=== PATIENT | male | born 2000 | race Caucasian/White ===

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

== ENCOUNTER 2022-06-18 12:37 | Emergency (ER) | payer OTHER, SELFPAY ==
[2022-06-18 12:38] VITALS: BP 148/84; PULSE 93; RESP 16; TEMP 36.3; O2SAT 98; BMI 26.4
--- NOTE | 2022-06-18 14:40 | RAD_ITS ---
HISTORY: Injury/Pain. TECHNIQUE: XR Shoulder Min 2 Views. COMPARISON: None. FINDINGS: BONES : No acute fracture identified. Mineralization unremarkable. JOINTS: No dislocation. Mild widening of the chronic ventricular joint. SOFT TISSUES: Right lung apex clear. RAD/Shoulder min 2 Views IMPRESSION: Mild acromioclavicular separation. No acute fracture or dislocation identified in the right shoulder. Electronically Signed: Dali France MD at 15:06 EST ,
--- NOTE | 2022-06-18 14:40 | RAD_ITS ---
HISTORY: Injury/Pain. TECHNIQUE: XR Knee Complete 4 Views or More. COMPARISON: None. FINDINGS: BONES : No acute fracture identified. Mineralization unremarkable. JOINTS: No dislocation. Joint spaces maintained. RAD/Knee 4 or More Views IMPRESSION: No acute fracture or dislocation identified in the right knee. Electronically Signed: Dali France MD at 15:05 EST ,
--- NOTE | 2022-06-18 14:40 | RAD_ITS ---
HISTORY: Injury/Pain. TECHNIQUE: XR Elbow Min 3 Views. COMPARISON: None. FINDINGS: BONES : No acute fracture identified. Mineralization unremarkable. JOINTS: No dislocation. Joint spaces maintained. RAD/Elbow min 3 Views IMPRESSION: No acute fracture or dislocation identified in the right elbow. Electronically Signed: Dali France MD at 15:04 EST ,
--- NOTE | 2022-06-18 14:40 | RAD_ITS ---
HISTORY: Injury/Pain. TECHNIQUE: XR Spine Cervical 4 or 5 Views. COMPARISON: None. FINDINGS: VERTEBRAE: Vertebral body heights maintained with limited evaluation below the C6/7 level due to overlapping soft tissues. No acute fracture identified. ALIGNMENT: No significant anterior or posterior subluxation. Straightening of the cervical lordosis. INTERVERTEBRAL DISCS: Disc heights preserved. SOFT TISSUES: No significant prevertebral soft tissue swelling. RAD/Cerv Spine 2 or 3 Views IMPRESSION: No acute fracture or dislocation identified in the cervical spine. Electronically Signed: Dali France MD at 15:04 EST ,
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
[2022-06-18] MEDS: Ibuprofen 400 MG Tablet 800 MG PO (14:57)
[2022-06-18 15:20] VITALS: BP 108/76; PULSE 81; RESP 16; O2SAT 98
== END 2022-06-18 15:26 | disposition home or self-care (01) ==
PROVIDERS: Emergency Provider Emergency Medicine; PCP Family Medicine; Visit Provider Emergency Medicine
DX: S16.1XXA Strain of muscle, fascia and tendon at neck level, initial encounter (principal); Y99.0 Civilian activity done for income or pay; S50.01XA Contusion of right elbow, initial encounter; F17.210 Nicotine dependence, cigarettes, uncomplicated; S80.01XA Contusion of right knee, initial encounter; S46.911A Strain of unspecified muscle, fascia and tendon at shoulder and upper arm level, right arm, initial encounter; V89.0XXA Person injured in unspecified motor-vehicle accident, nontraffic, initial encounter; Y93.89 Activity, other specified; Y92.89 Other specified places as the place of occurrence of the external cause
CPT/HCPCS: 72040; 73030; 73080; 73564; 99282

== ENCOUNTER → 2023-01-25 | Outpatient (CLI) | payer OTHER, SELFPAY ==
--- NOTE | 2023-01-25 14:25 | RAD_ITS ---
STUDY: X-RAY - RIGHT FOOT CLINICAL: Male, 22 years old. Right foot injury TECHNIQUE: 3 view(s) of the foot. COMPARISON: None. FINDINGS: Normal talus, calcaneus, and tarsal bones. Normal visualized subtalar, talonavicular, calcaneocuboid, tarsal and tarsometatarsal articulations. Normal metatarsi. Normal metatarsophalangeal joint of the great toe. Normal tibial and fibular sesamoid bones. Normal interphalangeal joint of the great toe. Normal phalanges of the great toe. Normal second through fifth metatarsophalangeal joints. Normal interphalangeal joints and phalanges of the lesser toes. The soft tissue structures are unremarkable. RAD/Foot min 3 Views IMPRESSION: Normal x-ray examination of the foot. Electronically Signed: Kirk Schultz MD at 14:39 EDT ,
== END | disposition home or self-care (01) ==
LOC: MTRAD 14:21
PROVIDERS: PCP Family Medicine; Visit Provider Physician Assistant Surgical
DX: S90.31XA Contusion of right foot, initial encounter (principal)
CPT/HCPCS: 73630

== ENCOUNTER 2023-06-14 11:12 | Emergency (ER) | payer SELFPAY ==
[2023-06-14 11:13] VITALS: BP 142/87; PULSE 59; RESP 16; TEMP 36.2; O2SAT 100; BMI 28.4
[2023-06-14 12:00] LABS: Bacteria 0 SEEN /hpf (None Seen); Mucous, Urine 0 SEEN /hpf (<or=2+); Squamous Epithelial Cells - UA 0 SEEN /hpf (0-5); White Blood Cells 0 SEEN /hpf (0-5)
[2023-06-14 12:06] LABS: Color, Urine Straw (Yellow); Glucose, Dipstick Normal (Normal); Ketone-Dipstick 5 mg/dl (Negative); Leukocyte Esterase-Dipstick Negative /ul (Negative); Nitrite-Dipstick Negative (Negative); Occult Blood-Urine 250 /ul (Negative); Protein-Dipstick 15 mg/dl (Negative); Urine Bilirubin Dipstick Negative (Negative); Urine Clarity Clear (Clear); Urine Urobilinogen 1 mg/dl (Normal); Urine pH 6.5 (5.0 - 8.0)
[2023-06-14 12:23] LABS: Red Blood Cells-Urine 5-10 SEEN /hpf (0-5)
--- NOTE | 2023-06-14 12:26 | CT_ITS ---
INDICATION: flank pain, hematuria EXAMINATION: CT ABDOMEN AND PELVIS WITHOUT CONTRAST - CT Abdomen And Pelvis W/O Contrast Injection TECHNIQUE: Helically acquired images were obtained of the abdomen and pelvis without oral or IV contrast. A radiation dose optimization technique was used for this scan. IV Contrast dosage and agent: None. Oral contrast: None. RADIATION DOSAGE (If Supplied By Facility): CTDIvol = ( 8.48 ) mGy, DLP = ( 413.23 ) mGycm COMPARISON: No relevant prior comparison study available FINDINGS: LOWER CHEST: Lung bases are clear. No cardiomegaly or pericardial effusion. LIVER: The liver is normal in size, shape, and attenuation. No focal mass. GALLBLADDER AND BILIARY TREE: The gallbladder is normally distended. No gallstones. No gallbladder wall thickening or edema. No intra- or extrahepatic biliary ductal dilation. PANCREAS: No focal cystic or solid mass. SPLEEN: Normal size without focal cystic or solid mass. ADRENAL GLANDS: No nodules. KIDNEYS AND URETERS: Normal renal size and position. No hydronephrosis or nephrolithiasis. PERITONEUM: No ascites or free air. No other fluid collection. BOWEL: The stomach is unremarkable. Normal caliber small bowel. No obstruction. No colonic wall thickening or inflammatory changes. No evidence of acute appendicitis. LYMPH NODES: No enlarged mesenteric or retroperitoneal lymph nodes. VESSELS: Aorta is non-dilated. There is a coarse calcification measuring approximately 7 x 3 mm along the inferior aspect of the left renal vein of unclear significance. URINARY BLADDER: Unremarkable. REPRODUCTIVE ORGANS: No pelvic masses. ABDOMINAL WALL: No discrete abdominal or pelvic wall hernia. BONES: No acute or suspicious osseous abnormality. CT/Abdomen/Pelvis without Cont IMPRESSION: * No urinary calculi or hydronephrosis. * Nonspecific coarse calcification along, or within the inferior aspect of left renal vein of unclear significance. Recommend renal Doppler for further evaluation. * Otherwise, negative CT abdomen and pelvis without oral or IV contrast. Electronically Signed: Madhu Parnell MD at 12:55 EST ,
--- NOTE | 2023-06-14 12:33 | EDS_ITS ---
HPI History of Present Illness Chief Complaint: Complaint Informant: patient Narrative Narrative: Patient is a 23-year-old male with prior history of hematuria (evaluated by [facility] urology with CT, lab work and cystoscopy about a year ago) as well as scoliosis presenting with recurrent hematuria and back pain. Patient states he first had an episode of hematuria about a year ago. He correlated it with trauma associated with his [id number] [place] [employer] running into his genitalia. He ultimately had blood work done by his primary care doctor however and then was referred to urology through [facility]. He had a CT scan which she states was normal and also had a cystoscopy with urology in [place]. Again he was told it was normal. He notes that he is continue to have intermittent episodes of hematuria since then. Yesterday he was having blood in his urine again and now having increasing low back pain. He had an episode of vomiting yesterday. He states it oscillates on sides but is now worse on the left. He notes that his urine was completely dark brown this morning when he urinated the first time and again the second time he urinated. It since cleared up. Denies any fever or chills. Continues to have nausea. I because of the worsening symptoms came in for further evaluation. No other complaints or concerns at this time. Denies any dysuria, pain or abdominal pain. Points to his lower back as his area of back pain. Chart review on [facility] -shows that patient had a CT urogram on 10/13/2022 which showed no renal calculi, obstructive changes or evidence of renal or collecting system neoplasia. He had cytology and cultures that were negative per Dr. Lopez, urology. [facility] Home Medications NK 01/31/23 [History Last Taken Unknown] Allergy/AdvReac Type Severity Reaction Status Date / Time No Known Allergies Allergy Verified 06/14/23 11:15 Family History Father Hypertension Other COPD (chronic obstructive pulmonary disease) Cancer Diabetes Heart disease Scoliosis Surgical History History of tonsillectomy Social History Smoking Status: Former smoker Electronic Cigarette Use: with nicotine alcohol intake: never ROS ROS ED Constitutional Constitutional ED: Denies chills or fever(s) Eyes Eyes: Denies change in vision Cardiovascular Cardiovascular: Denies chest pain Respiratory/Chest Respiratory/Chest: Denies cough Gastrointestinal Gastrointestinal: Reports nausea and vomiting; Denies abdominal pain, constipation or diarrhea Genitourinary Genitourinary ED: Reports hematuria; Denies dysuria Musculoskeletal Musculoskeletal: Reports back pain; Denies arthralgias or myalgias Integumentary Denies rash Neurologic Neurologic: Denies headache(s) EXAM Physical Exam Const Vital Signs: 06/14/23 11:13 06/14/23 13:12 06/14/23 14:57 Temperature 97.1 F L Temperature Source Temporal Pulse Rate 59 L 65 Respiratory Rate 16 Blood Pressure 142/87 H 142/70 H 166/98 H Blood Pressure Mean 105 94 120 Pulse Ox 100 Oxygen Delivery Method Room Air Positive well nourished and well developed General Appearance ED: well developed and NAD HEENT Reports moist mucous membranes Eyes PERRL Neck supple Chest Wall inspection of chest normal and palpation of chest normal Resp normal respiratory effort and clear to auscultation bilaterally Cardio regular rate, regular rhythm and no murmurs GI normal to inspection, nondistended, normoactive bowel sounds and non-tender Back/Spine no CVA tenderness Back/Spine Narrative: Patient points to the lower lumbar paraspinal region as his area of pain however not significantly reproducible with direct palpation. No midline tenderness. Thoracic Spine / Upper Back: Negative for thoracic spinal tenderness or paraspinal muscle tenderness Lumbar Spine / Lower Back: lumbar spinal tenderness Neuro oriented x3 Sensorium / Orientation: alert Motor Exam: Negative for general weakness Psych mental status grossly normal Skin no rashes or lesions noted and no wounds MDM MDM MDM Narrative Medical decision making narrative: Patient evaluated for low back pain and hematuria. Differential includes renal colic, muscle skeletal pain, urinary tract infection as well as nephrotic syndrome. Vital signs significant for mildly elevated blood pressure. Does not have a known history of high blood pressure. States that his nausea and his pain is improving so we will defer any treatment at this time. Workup large unremarkable with normal CBC specifically normal hemoglobin and platelets and normal CMP. I did add on CK in case this is actually more of a rhabdo picture however the CK is normal. Kidney function is normal. Urinalysis does show hematuria but no signs of infection. CT of the flank is obtained which shows no urinary calculus or hydronephrosis however does show nonspecific coarse calcification along or within the inferior aspect of the left renal vein of unclear significance. This is discussed with vascular surgery who states that they feel that they can comfortably follow-up with him outpatient. No further imaging or recommendations ordered at this time. Patient encouraged to follow-up outpatient with his primary care doctor for blood pressure check. He states he thinks blood pressure is becoming elevated because of nervousness about being in the ER and developing a headache. Is given dose of Toradol given he does have normal kidney function normal platelets in the emergency room. We discharged home with outpatient follow-up. Given return precautions. Patient verbalized agreement understand this plan. Discharged home in stable condition. Lab Data Attestation: I reviewed the patient's lab results. Labs: Laboratory Results - last 24 hr 06/14/23 06/14/23 06/14/23 11:56 12:20 13:38 WBC 7.5 RBC 4.76 Hgb 14.0 Hct 42.7 MCV 89.7 MCH 29.4 MCHC 32.8 RDW Std Deviation 41.1 RDW Coeff of [place] 12.5 Plt Count 298 MPV 9.6 Immature Gran % (Auto) 0.400 Neut % (Auto) 58.1 Lymph % (Auto) 22.9 [place] % (Auto) 13.4 H Eos % (Auto) 4.7 Baso % (Auto) 0.5 Absolute Neuts (auto) 4.4 Absolute Lymphs (auto) 1.72 Nucleated RBC % 0 Sodium 140 Potassium 4.3 Chloride 108 H Carbon Dioxide 28.0 Anion Gap 4 L BUN 14 Creatinine 0.95 Estim Creat Clear Calc 136.49 Est GFR (MDRD) Af Amer 127 Est GFR (MDRD) Non-Af 105 BUN/Creatinine Ratio 14.8 Glucose 99 Calcium 9.9 Total Bilirubin 0.20 AST 20 ALT 25 Alkaline Phosphatase 59 Total Creatine Kinase 141 Total Protein 7.8 Albumin 3.9 Globulin 3.9 Albumin/Globulin Ratio 1.0 Urine Color Straw Urine Clarity Clear Urine pH 6.5 Ur Specific [place] 1.010 Urine Protein 15 H Urine Glucose (UA) Normal Urine Ketones 5 H Urine Occult Blood 250 H Urine Nitrite Negative Urine Bilirubin Negative Urine Urobilinogen 1 H Ur Leukocyte Esterase Negative Urine RBC 5-10 SEEN Urine WBC 0 SEEN Ur Squamous Epith Cells 0 SEEN Urine Bacteria 0 SEEN Urine Mucus 0 SEEN Radiography Diagnostic Testing: Clinical Impression(s) from Imaging Studies Abdomen/Pelvis CT 06/14/23 12:26 IMPRESSION: * No urinary calculi or hydronephrosis. * Nonspecific coarse calcification along, or within the inferior aspect of left renal vein of unclear significance. Recommend renal Doppler for further evaluation. * Otherwise, negative CT abdomen and pelvis without oral or IV contrast. Electronically Signed: Madhu Parnell MD at 12:55 EST Reading Location ID and State: [id number] [facility] Tel , Service support , Management Discussion w/another healthcare provider: [facility] Discharge Plan Triage Chief Complaint: Complaint ED Provider: Kari Mata Dx/Rx/DC Orders Clinical Impression: Hematuria of unknown cause, Abnormal CT of the abdomen, Blood pressure elevated without history of HTN Instructions: ED Hematuria Prescriptions: No Action NK Primary Care Provider: Ernesto Palomo Referrals: Parminder Waite MD [Med Staff - Active Staff] - As soon as possible Ernesto Palomo MD [Primary Care Provider] - Activity Restrictions/Additional Instructions: Your workup shows some nonspecific calcifications of the left renal vein. Is not clear if this is those with your hematuria but will have you follow-up with vascular surgery for this. Your urine did show signs of microscopic blood but no other signs of infection. Your lab work was otherwise normal including your potassium today. Please follow-up with your primary care doctor for blood pressure check as well. Return if you have a progression or worsening your symptoms. Your kidney function, platelets and red blood cells all look normal today. Disposition Disposition: Home, Self Care Discharge Date/Time: 06/14/23 15:03 Capacity Legal Head Resident Reflex Medical hold order details:: IF a medical hold is selected below, a suggested order for a MEDICAL HOLD will reflex upon signing the document. Next of kin: [place] law dictates a PRIORITY LIST for identifying legal decision-maker/legal next of kin in the following order (LNOK): 1st: The patient?s legal guardian, if any 2nd: The patient's spouse (if status is questionable, consult Risk Management) 3rd: The patient?s adult child([place]) (majority, if multiple children) 4th: The patient?s parents 5th: The patient?s adult siblings (majority, if multiple children siblings)
--- OUTSIDE RECORDS SUMMARY | 2023-06-14 12:34 | XMS RPT_ITS | CCD ---
Author Name Unknown Address [address] [place] [address] Organization [facility] Care Team Providers [employer] Name Role Phone VONDA HILL Unavailable Unavailable DAIANA KHALIL Unavailable Unavailable TAMEKA CHAMBERS Unavailable Unavailable OTHER, EMERGENCY Unavailable Unavailable VONDA HILL Unavailable Unavailable VONDA HILL Unavailable Unavailable RHIANNON WEBSTER Unavailable Unavailable ALBERTO ANGULO Unavailable Unavailable ALBERTO ANGULO Unavailable Unavailable Lakia Riddle Unavailable Unavailable PROVIDER, UNKNOWN Unavailable Unavailable No, PCP Unavailable Unavailable Marika Palomo MD Primary Care Provider Marika Palomo MD Primary Care Provider Marika Palomo MD Primary Care Provider MARIKA PALOMO Primary Care Unavailable MARIKA PALOMO Referring Unavailable LEDA JIMENEZ Attending Unavailable MARIKA PALOMO Referring Unavailable MARIKA PALOMO Primary Care Unavailable MARCELLA CHRISTENSEN Referring Unavailable MARIKA PALOMO Primary Care Unavailable MARIKA PALOMO Primary Care Unavailable MARIKA PALOMO Primary Care Unavailable MARIKA PALOMO Primary Care Unavailable MARIKA PALOMO Attending Unavailable MARIKA PALOMO Primary Care Unavailable MARIKA PALOMO Primary Care Unavailable MARIKA PALOMO Referring Unavailable MARIKA PALOMO MD Primary Care Physician ALBERTO CAMARA DO Attending Unavailable JENN GAONA, MARIKA Primary Care Unavailable SAURABH GAONA, DR CEVALLOS Attending UnavailMARIKA Valerio MD Primary Care Unavailable Marika Palomo MD Primary Care Provider ISHA MARTINEZ Attending Unavailable MARIKA PALOMO Care Unavailable Allergies Allergy Classification Reported Allergen(s) Allergy Type Date of Onset Reaction(s) Facility (1 source) acetaminophen; Translations: [ACETAMINOPHEN] Drug Allergy 3 [facility] Repository (10 sources) Chlorpheniramine / Dextromethorphan / Pseudoephedrine; Translations: [CHLORPHENIRAMINE-PS EUDOEPH-DM] Drug Allergy 6 Rash [facility] Work Phone: (1 source) Cat Allergy to substance [facility] Medications Current Medications Medication Drug Class(es) Dates Sig (Normalized) Sig (Original) amoxicillin 875 mg / clavulanate 125 mg oral tablet (1 source) Penicillin-class Antibacterial Start: 05-14-2023 End: 05-21-2023 take 1 tablet by mouth every twelve hours amoxicillin-clav ulanate (Augmentin) 875-125 MG tablet Take 1 tablet by mouth in the morning and 1 tablet in the evening. Do all this for 7 days. 14 tablet 0 05/14/2023 05/21/2023 Active mupirocin 0.02 mg/mg topical ointment (1 source) RNA Synthetase Inhibitor Antibacterial Start: 12-27-2021 End: 01-01-2022 mupirocin (BACTROBAN) 2 % ointment Apply to affected area three times daily for 5 days. 30 g 0 12/27/2021 01/01/2022 Active Completed/Discontinued Medications Medication Drug Class(es) Dates Sig (Normalized) Sig (Original) amitriptyline hydrochloride 10 mg oral tablet (6 sources) Tricyclic Antidepressant Start: 07-18-2021 take 1 tablet by mouth once daily at bedtime amitriptyline (ELAVIL) 10 mg tablet Indications: Migraine without aura, intractable, without status migrainosus Take 1 tablet by mouth daily at bedtime. 30 tablet 1 07/18/2021 Active Problems Active Problems Problem Classification Problem Date Documented Da te Episodic/Chronic Allergic reactions (2 sources) Allergy status to analgesic agent status; Translations: [Allergy status to analgesic agent status] Onset: 02-19-2018 Episodic Asthma (11 sources) Unspecified asthma, uncomplicated; Translations: [Allergic asthma] Onset: 04-26-2006 07-15-2018 Chronic External Injury - Fall (2 sources) Other fall from one level to another, initial encounter; Translations: [Other fall from one level to another, initial encounter] Onset: 02-19-2018 Fluid and electrolyte disorders (2 sources) Hyperkalemia; Translations: [Hyperkalemia] Onset: 09-29-2022 Episodic Gastroduodenal ulcer (except hemorrhage) (9 sources) Peptic ulcer; Translations: [Peptic ulcer, site unspecified, unspecified as acute or chronic, without hemorrhage or perforation] Onset: 07-15-2018 07-15-2018 Chronic Genitourinary symptoms and ill-defined conditions (2 sources) Javon hematuria; Translations: [Gross hematuria] Onset: 09-26-2022 Episodic Mood disorders (9 sources) Depressive disorder; Translations: [Depression] Onset: 07-15-2018 07-15-2018 Chronic Nausea and vomiting (1 source) Vomiting; Translations: [Vomiting, unspecified] Onset: 12-26-2022 Episodic Other gastrointestinal disorders (1 source) Chronic constipation; Translations: [Other constipation] Episodic Other injuries and conditions due to external causes (2 sources) Unspecified injury of left foot, initial encounter; Translations: [Unspecified injury of left foot, initial encounter] Onset: 02-19-2018 Episodic Other skin disorders (2 sources) Eruption; Translations: [Rash and other nonspecific skin eruption] Episodic Other upper respiratory disease (9 sources) Allergic rhinitis; Translations: [Allergic rhinitis, unspecified] Onset: 05-23-2007 02-10-2009 Chronic Other upper respiratory disease (1 source) Congestion of nasal sinus; Translations: [Nasal congestion] 05-14-2023 Episodic Other upper respiratory disease (2 sources) Nasal congestion; Translations: [Nasal congestion] Onset: 05-14-2023 Episodic Sprains and strains (2 sources) Unspecified sprain of left foot, initial encounter; Translations: [Unspecified sprain of left foot, initial encounter] Onset: 02-19-2018 Episodic Substance-related disorders (2 sources) Nicotine dependence, other tobacco product, uncomplicated; Translations: [Nicotine dependence, other tobacco product, uncomplicated] Onset: 02-19-2018 Chronic Past or Other Problems Problem Classification Problem Date Documented Da te Episodic/Chronic Blindness and vision defects (9 sources) Lazy eye; Translations: [Unspecified amblyopia, left eye] Onset: 07-15-2018 07-15-2018 Episodic Headache; including migraine (9 sources) Headache; Translations: [Headache, unspecified headache type] Onset: 07-25-2013 07-15-2018 Episodic Intracranial injury (9 sources) History of concussion injury of brain; Translations: [Personal history of traumatic brain injury] Onset: 07-15-2018 07-15-2018 Episodic Other non-traumatic joint disorders (9 sources) Shoulder pain; Translations: [Pain in right shoulder] Onset: 12-30-2020 12-30-2020 Episodic Other non-traumatic joint disorders (9 sources) Pain in right knee; Translations: [Pain in joint, lower leg] Onset: 12-30-2020 12-30-2020 Episodic Other non-traumatic joint disorders (1 source) Pain in right wrist; Translations: [Right wrist pain] Onset: 01-03-2022 Episodic Residual codes; unclassified (9 sources) Harmful pattern of use of nicotine; Translations: [Tobacco use] Onset: 07-15-2018 07-15-2018 Episodic Residual codes; unclassified (4 sources) FH: Drug dependency; Translations: [Family history of other psychoactive substance abuse and dependence] Onset: 12-22-2020 12-22-2020 Episodic Residual codes; unclassified (5 sources) Family history of other psychoactive substance abuse and dependence; Translations: [Family history of psychiatric condition] Onset: 12-22-2020 12-22-2020 Episodic Results Test Name Value Interpretation Reference Range Facil it Vital Signs Date Time Vital Sign Value Performing Clinician [facility] 05-14-2023 12:21-0500 Body height 175.3 cm Isha Martinez MD Work Phone: [facility] 05-14-2023 12:21-0500 Body mass index (BMI) [Ratio] 28.06 kg/m2 Isha Martinez MD Work Phone: [facility] 05-14-2023 12:21-0500 Body temperature 98.4 [degF] Isha Martinez MD Work Phone: [facility] 05-14-2023 12:21-0500 Body weight 86.18 kg Isha Martinez MD Work Phone: [facility] 05-14-2023 12:21-0500 Diastolic blood pressure 69 mm[Hg] Isha Martinez MD Work Phone: [facility] 05-14-2023 12:21-0500 Heart rate 89 /min Isha Martinez MD Work Phone: [facility] 05-14-2023 12:21-0500 Respiratory rate 16 /min Isha Martinez MD Work Phone: [facility] 05-14-2023 12:21-0500 SaO2% (BldA) [Mass fraction] 98 % Isha Martinez MD Work Phone: [facility] 05-14-2023 12:21-0500 Systolic blood pressure 129 mm[Hg] Isha Martinez MD Work Phone: [facility] 12-26-2022 22:20-0400 Diastolic Blood Pressure Non-Invasive [address] BAN WILEY MD [facility] 12-26-2022 22:20-0400 Heart rate 58 /min DR BAN WILEY MD [facility] 12-26-2022 22:20-0400 Reason For Taking VItal Signs DR BAN WILEY MD [facility] 12-26-2022 22:20-0400 Respiratory rate 16 /min DR BAN WILEY MD [facility] 12-26-2022 22:20-0400 Systolic Blood Pressure Non-Invasive [address] BAN WILEY MD [facility] 12-26-2022 21:34-0400 Body temperature 98.06 [degF] DR BAN WILEY MD [facility] 12-26-2022 21:34-0400 Diastolic Blood Pressure Non-Invasive [address] BAN WILEY MD [facility] 12-26-2022 21:34-0400 Heart rate 71 /min DR BAN WILEY MD [facility] 12-26-2022 21:34-0400 Respiratory rate 16 /min DR BAN WILEY MD [facility] 12-26-2022 21:34-0400 Systolic Blood Pressure Non-Invasive [address] BAN WILEY MD [facility] 09-20-2022 11:38-0400 Body height 175.3 cm Marika Palomo MD Work Phone: [facility] 09-20-2022 11:38-0400 Body weight 81.65 kg Marika Palomo MD Work Phone: [facility] 09-20-2022 11:38-0400 Diastolic blood pressure 70 mm[Hg] Marika Palomo MD Work Phone: [facility] 09-20-2022 11:38-0400 Heart rate 87 /min Marika Palomo MD Work Phone: [facility] 09-20-2022 11:38-0400 SaO2% (BldA) [Mass fraction] 98 % Marika Palomo MD Work Phone: [facility] 09-20-2022 11:38-0400 Systolic blood pressure 128 mm[Hg] Marika Palomo MD Work Phone: [facility] 12-27-2021 19:07-0400 Body temperature 98.2 [degF] Kaleb Pendjune FORESTRY PROFESSOR.MATERIALS PLANNER/PRODUCTION PLANNER Work Phone: [facility] 12-27-2021 19:07-0400 Body weight 83.55 kg Kaleb Pendjune FORESTRY PROFESSOR.MATERIALS PLANNER/PRODUCTION PLANNER Work Phone: [facility] 12-27-2021 19:07-0400 Diastolic blood pressure 76 mm[Hg] Kaleb Pendlebury FORESTRY PROFESSOR.MATERIALS PLANNER/PRODUCTION PLANNER Work Phone: [facility] 12-27-2021 19:07-0400 Heart rate 95 /min Kaleb Pendletucker FORESTRY PROFESSOR.MATERIALS PLANNER/PRODUCTION PLANNER Work Phone: [facility] 12-27-2021 19:07-0400 Respiratory rate 16 /min Kaleb Pendlebury FORESTRY PROFESSOR.MATERIALS PLANNER/PRODUCTION PLANNER Work Phone: [facility] 12-27-2021 19:07-0400 SaO2% (BldA) [Mass fraction] 99 % Kaleb Pendlebury FORESTRY PROFESSOR.MATERIALS PLANNER/PRODUCTION PLANNER Work Phone: [facility] 12-27-2021 19:07-0400 Systolic blood pressure 130 mm[Hg] Kaleb Pendlebury FORESTRY PROFESSOR.MATERIALS PLANNER/PRODUCTION PLANNER Work Phone: [facility] 10-31-2021 18:02-0400 Body temperature 98.49 [degF] Kaleb Pendlebury FORESTRY PROFESSOR.MATERIALS PLANNER/PRODUCTION PLANNER Work Phone: [facility] 10-31-2021 18:02-0400 Body weight 83.28 kg Kaleb Pendlebury FORESTRY PROFESSOR.MATERIALS PLANNER/PRODUCTION PLANNER Work Phone: [facility] 10-31-2021 18:02-0400 Diastolic blood pressure 98 mm[Hg] Kaleb Pendlebury FORESTRY PROFESSOR.MATERIALS PLANNER/PRODUCTION PLANNER Work Phone: [facility] 10-31-2021 18:02-0400 Heart rate 81 /min Kaleb Pendlebury FORESTRY PROFESSOR.MATERIALS PLANNER/PRODUCTION PLANNER Work Phone: [facility] 10-31-2021 18:02-0400 Respiratory rate 20 /min Kaleb Pendlebury FORESTRY PROFESSOR.MATERIALS PLANNER/PRODUCTION PLANNER Work Phone: [facility] 10-31-2021 18:02-0400 SaO2% (BldA) [Mass fraction] 98 % Kaleb Pendletucker FORESTRY PROFESSOR.MATERIALS PLANNER/PRODUCTION PLANNER Work Phone: [facility] 10-31-2021 18:02-0400 Systolic blood pressure 142 mm[Hg] Kaleb [facility] FORESTRY PROFESSOR.MATERIALS PLANNER/PRODUCTION PLANNER Work Phone: [facility] Encounters Encounter Date Encounter Type Care Provider Facility Start: 05-14-2023 End: 05-14-2023 Emergency department patient visit ISHA MARTINEZ [facility] Start: 05-14-2023 End: 05-14-2023 Emergency department patient visit Isha Martinez MD Work Phone: [facility] Procedures Date Procedure Procedure Detail Performing Clinician Start: 05-14-2023 SARS-COV-2, FLU A/B, AND RSV COMBO Isha Martinez MD Work Phone: Start: 08-04-2021 Adult depression screening assessment Kaleb Barnhart APRN.MATERIALS PLANNER/PRODUCTION PLANNER Work Phone: Plan of Treatment Date Care Activity Detail Author Start: 2060 RSV Immunization aged 60 or older (1 - 1-dose 60+ series) RSV Immunization aged 60 or older (1 - 1-dose 60+ series) [facility] Start: 2050 Zoster Vaccines (1 of 2) Zoster Vaccines (1 of 2) [facility] Start: 09-21-2023 ANNUAL PCP TEAM CHRONIC DISEASE VISIT ANNUAL PCP TEAM CHRONIC DISEASE VISIT [facility] Start: 01-26-2023 Influenza vaccination [facility] Start: 09-22-2022 End: 11-22-2022 POTASSIUM BLD POTASSIUM BLD Lab Routine Hyperkalemia Expected: 09/22/2022, Expires: 11/22/2022 [facility] Work Phone: Immunizations Immunization Date Immunization Notes Care Provider [facility] 07-24-2017 meningococcal polysaccharide (groups A, C, Y and W-135) diphtheria toxoid conjugate vaccine (MCV4P) Kaleb Barnhart APRN.[facility] Work Phone: [facility] Work Phone: 06-30-2013 human papilloma viru s vaccine, quadrivalent Kaleb Barnhart APRN.MATERIALS PLANNER/PRODUCTION PLANNER Work Phone: [facility] 08-01-2012 human papilloma viru s vaccine, quadrivalent Kaleb Barnhart APRN.MATERIALS PLANNER/PRODUCTION PLANNER Work Phone: [facility] 08-01-2012 Meningococcal, MCV4, unspecified conjugate formulation(groups A, C, Y and W-135) Kaleb Barnhart APRN.MATERIALS PLANNER/PRODUCTION PLANNER Work Phone: [facility] 08-01-2012 tetanus toxoid, redu main diphtheria toxoid, and acellular pertussis vaccine, adsorbed Kaleb Barnhart APRN.MATERIALS PLANNER/PRODUCTION PLANNER Work Phone: [facility] 04-29-2010 influenza virus vacc ine, unspecified formulation Kaleb Barnhart APRN.MATERIALS PLANNER/PRODUCTION PLANNER Work Phone: [facility] Work Phone: 03-10-2009 influenza, seasonal, injectable Kaleb Pizanotucker FORESTRY PROFESSOR.MATERIALS PLANNER/PRODUCTION PLANNER Work Phone: [facility] 02-17-2008 varicella virus vaccine Jakob soila Pizanotucker FORESTRY PROFESSOR.MATERIALS PLANNER/PRODUCTION PLANNER Work Phone: [facility] 04-09-2006 influenza virus vacc ine, unspecified formulation Kaleb Pizanotucker FORESTRY PROFESSOR.MATERIALS PLANNER/PRODUCTION PLANNER Work Phone: [facility] Work Phone: 01-15-2006 diphtheria, tetanus toxoids and acellular pertussis vaccine Kaleb Barnhart FORESTRY PROFESSOR.[facility] Work Phone: [facility] Work Phone: 01-15-2006 hepatitis A vaccine, unspecified formulation Kaleb Pizanotucker FORESTRY PROFESSOR.[facility] Work Phone: [facility] Work Phone: 01-15-2006 measles, mumps, rube lla, and varicella virus vaccine Kaleb Barnhart FORESTRY PROFESSOR.MATERIALS PLANNER/PRODUCTION PLANNER Work Phone: [facility] Work Phone: 01-15-2006 poliovirus vaccine, inactivated Kaleb Pizanotucker FORESTRY PROFESSOR.MATERIALS PLANNER/PRODUCTION PLANNER Work Phone: [facility] Work Phone: 01-15-2006 hepatitis A and hepatitis B vaccine Isha Martinez MD Work Phone: [facility] 03-15-2004 influenza, seasonal, injectable Kaleb Pizanotucker FORESTRY PROFESSOR.MATERIALS PLANNER/PRODUCTION PLANNER Work Phone: [facility] 10-28-2001 diphtheria, tetanus toxoids and acellular pertussis vaccine Kaleb Pizanotucker FORESTRY PROFESSOR.MATERIALS PLANNER/PRODUCTION PLANNER Work Phone: [facility] Work Phone: 10-28-2001 haemophilus influenz ae type b vaccine, HbOC conjugate Kaleb Pizanotucker FORESTRY PROFESSOR.MATERIALS PLANNER/PRODUCTION PLANNER Work Phone: [facility] Work Phone: 10-28-2001 trivalent poliovirus vaccine, live, oral Kaleb Barnhart FORESTRY PROFESSOR.[facility] Work Phone: [facility] Work Phone: 04-10-2001 measles, mumps and rubella virus vaccine Kaleb Barnhart FORESTRY PROFESSOR.MATERIALS PLANNER/PRODUCTION PLANNER Work Phone: [facility] Work Phone: 04-10-2001 varicella virus vaccine Jakob soila Barnhart FORESTRY PROFESSOR.MATERIALS PLANNER/PRODUCTION PLANNER Work Phone: [facility] Work Phone: 01-04-2001 hepatitis B vaccine, pediatric or pediatric/adolescent dosage Kaleb Barnhart FORESTRY PROFESSOR.[facility] Work Phone: [facility] Work Phone: 2000 diphtheria, tetanus toxoids and acellular pertussis vaccine Kalebsoila [facility] FORESTRY PROFESSOR.[facility] Work Phone: [facility] Work Phone: 2000 haemophilus influenz ae type b vaccine, HbOC conjugate Kalebsoila [facility] FORESTRY PROFESSOR.[facility] Work Phone: [facility] Work Phone: 2000 pneumococcal conjuga te vaccine, 7 valent Kaleb [facility] FORESTRY PROFESSOR.[facility] Work Phone: [facility] Work Phone: 2000 diphtheria, tetanus toxoids and acellular pertussis vaccine Kalebsoila [facility] FORESTRY PROFESSOR.MATERIALS PLANNER/PRODUCTION PLANNER Work Phone: [facility] Work Phone: 2000 haemophilus influenz ae type b vaccine, HbOC conjugate [facility] FORESTRY PROFESSOR.[facility] Work Phone: [facility] Work Phone: 2000 pneumococcal conjuga te vaccine, 7 valent Kaleb [facility] FORESTRY PROFESSOR.MATERIALS PLANNER/PRODUCTION PLANNER Work Phone: [facility] Work Phone: 2000 trivalent poliovirus vaccine, live, oral Kaleb Barnhart FORESTRY PROFESSOR.MATERIALS PLANNER/PRODUCTION PLANNER Work Phone: [facility] Work Phone: 2000 diphtheria, tetanus toxoids and acellular pertussis vaccine Kaleb Barnhart FORESTRY PROFESSOR.MATERIALS PLANNER/PRODUCTION PLANNER Work Phone: [facility] Work Phone: 2000 haemophilus influenz ae type b vaccine, HbOC conjugate Kaleb Barnhart FORESTRY PROFESSOR.[facility] Work Phone: [facility] Work Phone: 2000 hepatitis B vaccine, pediatric or pediatric/adolescent dosage Kaleb Barnhart FORESTRY PROFESSOR.[facility] Work Phone: [facility] Work Phone: 2000 pneumococcal conjuga te vaccine, 7 valent Kaleb Barnhart FORESTRY PROFESSOR.[facility] Work Phone: [facility] Work Phone: 2000 trivalent poliovirus vaccine, live, oral Kaleb Barnhart FORESTRY PROFESSOR.MATERIALS PLANNER/PRODUCTION PLANNER Work Phone: [facility] Work Phone: 2000 hepatitis B vaccine, pediatric or pediatric/adolescent dosage Kaleb Barnhart FORESTRY PROFESSOR.[facility] Work Phone: [facility] Work Phone: Payers Date Payer Category Payer Self-pay 2021 Unknown 2020 Medicaid [employer] [employer] [id number] 2020-Present [phone] [address] [place] [address] Medicaid [id number] 2020 Medicaid [id number] 2020 Medicaid [id number] 2000 Unknown [id number] 2000 Unknown [id number] Unknown [id number] Social History Date Type Detail Facility Start: 01-03-2022 Tobacco smoking stat [facility] Never smoked tobacco [facility] Work Phone: Start: 10-31-2021 End: 05-14-2023 Alcohol intake Current drinker of alcohol (finding) [facility] Start: 11-18-2020 History SDOH Alcohol Frequency 2 [facility] Start: 11-18-2020 History SDOH Alcohol Std Drinks 1 [facility] Start: 02-01-2021 History SDOH Alcohol Comment rarely [facility] Start: 11-18-2020 History SDOH Social Connections Phone 5 [facility] Start: 11-18-2020 History SDOH Social Connections Get Together 3 [facility] Start: 11-18-2020 History SDOH Social Connections Living 98 [facility] Start: 11-18-2020 History SDOH Physica l Activity DPW 7 [facility] Start: 11-18-2020 History SDOH Physica l Activity MPS 15 [facility] Start: 11-18-2020 History SDOH Stress 4 [facility] Start: 11-18-2020 Education 14 [facility] Start: 02-12-2018 End: 01-03-2022 Tobacco Comment Vapes [facility] Start: 2000 Sex Assigned At Not on file [facility] Start: 12-17-2021 End: 12-27-2021 Exposure to SARS-CoV-2 (event) Not sure [facility] History of tobacco use Passive smoker [facility] Start: 01-03-2022 Tobacco use and exposure Forme r smokeless tobacco user [facility] Tobacco Tobacco Use: vape. [facility] Tobacco smoking status No Smokin g Status Entered [facility] Sex Assigned At Male [facility] Start: 05-14-2023 [facility] History of tobacco use Current smoker [facility] History of tobacco use Cigarette Smoker [facility] Start: 05-16-2022 History of Social function [facility] Start: 05-16-2022 Tobacco use panel [facility] Start: 05-14-2023 Alcohol Comment occasional [facility] Functional Status Date Assessment Result Facility 12-26-2022 Functional Status ID band on, Call device within reach, Bed in low position, Wheels locked, Bedside Cart Locked, Safety level maintained [facility] Mental Status Date Assessment Result Facility 12-26-2022 Mental Status Oriented x 4 [facility] Clinical Notes 02-10-2009 to 05-14-2023 Isha Martinez MD - 05/14/2023 12:07 PM Poornima Martinez MD - 05/14/2023 12:07 PM ESTTelephone Encounter - Vangie Al RATE ENGINEER - 10/05/2022 12:49 PM EDTPatient Instructions Note Date & Type Note Facility 05-14-2023 Emergency department Note EMERGENCY DEPARTMENT ENCOUNTER Pt Name: Hammad Lion Birthdate 2000 Date of evaluation: 05/14/2023 ED Provider: Isha Martinez MD CHIEF COMPLAINT Chief Complaint Patient presents with URI Pt believes he has a sinus infection. Sunday morning he woke up with N/V/D that resolved and now he has cough, runny nose, and sinus pressure. States that his dad was sick and they both took COVID tests that both came back negative. HISTORY OF PRESENT ILLNESS (Location/Symptom, Timing/Onset, Context/Setting, Quality, Duration, Modifying Factors, Severity) Note limiting factors. I wore appropriate PPE for the entirety of this encounter. HPI Hammad Lion is a 23 y.o. who presents to the emergency department with sinus congestion, he says his father was just recently sick as well, he has some achiness in his back and headache, no measured fevers, he had 1 day of vomiting and diarrhea but that has since subsided, symptoms started 5 days ago Nursing Notes were reviewed. Limitations to history: None Outside historians: None REVIEW OF SYSTEMS Review of Systems Pertinent positives and negatives as per HPI PAST MEDICAL HISTORY Past Medical History: Diagnosis Date Asthma Headache SURGICAL HISTORY Past Surgical History: Procedure Laterality Date TONSILLECTOMY (HISTORICAL) CURRENT MEDICATIONS Previous Medications No medications on file ALLERGIES Patient has no known allergies. FAMILY HISTORY No family history on file. SOCIAL HISTORY Social History Socioeconomic History Marital status: Single Tobacco Use Smoking status: Former Types: Cigarettes Vaping Use Vaping Use: Every day Substances: Nicotine Substance and Sexual Activity Alcohol use: Yes Comment: occasional Drug use: No SCREENINGS PHYSICAL EXAM ED Triage Vitals [05/14/23 1221] Temp Heart Rate Resp BP 36.9 C (98.4 F) 89 16 129/69 SpO2 Temp Source Heart Rate Source Patient Position 98 % Oral -- -- BP Location FiO2 (%) -- -- Physical Exam Mild tenderness to palpation in the bilateral maxillary sinuses, heart regular rate and rhythm, no anterior cervical lymphadenopathy DIAGNOSTIC RESULTS RADIOLOGY (Per Emergency Physician): Interpretation per the Radiologist below, if available at the time of this note: No orders to display LABS: Labs Reviewed SARS-COV-2, FLU A/B, AND RSV COMBO - Normal Result Value SARS-CoV-2 Not Detected Respiratory Syncytial Virus Not Detected Influenza A Not Detected Influenza B Not Detected Narrative: Methodology: real-time, RT-PCR The SARS-CoV-2, Flu A/B, and RSV Combo assay is intended for in vitro diagnostic use under the FDA Emergency Use Authorization (EUA). This test has not been FDA cleared or approved. In compliance with this authorization, please visit www.fda.gov/media/143284/downloa d or www.fda.gov/media/585577/downloa d to access the applicable information sheets. All other labs were within normal range or not returned as of this dictation. EMERGENCY DEPARTMENT COURSE and DIFFERENTIAL DIAGNOSIS/MDM: Vitals: Vitals: 05/14/23 1221 BP: 129/69 Pulse: 89 Resp: 16 Temp: 36.9 C (98.4 F) TempSrc: Oral SpO2: 98% Weight: 86.2 kg (190 lb) Height: 1.753 m (5' 9 ) Medications - No data to display MDM elements: The patient presented with chief complaint of with nasal congestion/sinus congestion, backache and headache for the past 5 days after his father had a similar illness, he took a home COVID test that was negative, he comes in for a work note today. The differential diagnosis associated with this patient's presentation includes COVID, influenza, RSV, sinus congestion/infection. Our workup consisted of ordering/reviewing: COVID influenza RSV is negative will treat with augmentin. The patient will be Discharged. Patient is in agreement with this plan. PROCEDURES: Unless otherwise noted below, none Procedures CRITICAL CARE TIME None FINAL IMPRESSION 1. Sinus congestion DISPOSITION Discharge 05/14/2023 01:31:46 PM PATIENT REFERRED TO: Marika Palomo MD [address] [address] As needed DISCHARGE MEDICATIONS: New Prescriptions AMOXICILLIN-CLAVULANATE (AUGMENTIN) 875-125 MG TABLET Take 1 tablet by mouth in the morning and 1 tablet in the evening. Do all this for 7 days. (Comment: Please note this report has been produced using speech recognition software and may contain errors related to that system including errors in grammar, punctuation, and spelling, as well as words and phrases that may be inappropriate. If there are any questions or concerns please feel free to contact the dictating provider for clarification.) Isha Martinez MD (electronically signed) Emergency Medicine Provider Isha Martinez MD 05/14/23 1332 documented in this encounter [facility] 05-14-2023 Physician Emergency department Note EMERGENCY DEPARTMENT ENCOUNTER Pt Name: Hammad Lion Birthdate 2000 Date of evaluation: 05/14/2023 ED Provider: Isha Martinez MD CHIEF COMPLAINT Chief Complaint Patient presents with URI Pt believes he has a sinus infection. Sunday morning he woke up with N/V/D that resolved and now he has cough, runny nose, and sinus pressure. States that his dad was sick and they both took COVID tests that both came back negative. HISTORY OF PRESENT ILLNESS (Location/Symptom, Timing/Onset, Context/Setting, Quality, Duration, Modifying Factors, Severity) Note limiting factors. I wore appropriate PPE for the entirety of this encounter. HPI Hammad Lion is a 23 y.o. who presents to the emergency department with sinus congestion, he says his father was just recently sick as well, he has some achiness in his back and headache, no measured fevers, he had 1 day of vomiting and diarrhea but that has since subsided, symptoms started 5 days ago Nursing Notes were reviewed. Limitations to history: None Outside historians: None REVIEW OF SYSTEMS Review of Systems Pertinent positives and negatives as per HPI PAST MEDICAL HISTORY Past Medical History: Diagnosis Date Asthma Headache SURGICAL HISTORY Past Surgical History: Procedure Laterality Date TONSILLECTOMY (HISTORICAL) CURRENT MEDICATIONS Previous Medications No medications on file ALLERGIES Patient has no known allergies. FAMILY HISTORY No family history on file. SOCIAL HISTORY Social History Socioeconomic History Marital status: Single Tobacco Use Smoking status: Former Types: Cigarettes Vaping Use Vaping Use: Every day Substances: Nicotine Substance and Sexual Activity Alcohol use: Yes Comment: occasional Drug use: No SCREENINGS PHYSICAL EXAM ED Triage Vitals [05/14/23 1221] Temp Heart Rate Resp BP 36.9 C (98.4 F) 89 16 129/69 SpO2 Temp Source Heart Rate Source Patient Position 98 % Oral -- -- BP Location FiO2 (%) -- -- Physical Exam Mild tenderness to palpation in the bilateral maxillary sinuses, heart regular rate and rhythm, no anterior cervical lymphadenopathy DIAGNOSTIC RESULTS RADIOLOGY (Per Emergency Physician): Interpretation per the Radiologist below, if available at the time of this note: No orders to display LABS: Labs Reviewed SARS-COV-2, FLU A/B, AND RSV COMBO - Normal Result Value SARS-CoV-2 Not Detected Respiratory Syncytial Virus Not Detected Influenza A Not Detected Influenza B Not Detected Narrative: Methodology: real-time, RT-PCR The SARS-CoV-2, Flu A/B, and RSV Combo assay is intended for in vitro diagnostic use under the FDA Emergency Use Authorization (EUA). This test has not been FDA cleared or approved. In compliance with this authorization, please visit www.fda.gov/media/605545/downloa d or www.fda.gov/media/783106/downloa d to access the applicable information sheets. All other labs were within normal range or not returned as of this dictation. EMERGENCY DEPARTMENT COURSE and DIFFERENTIAL DIAGNOSIS/MDM: Vitals: Vitals: 05/14/23 1221 BP: 129/69 Pulse: 89 Resp: 16 Temp: 36.9 C (98.4 F) TempSrc: Oral SpO2: 98% Weight: 86.2 kg (190 lb) Height: 1.753 m (5' 9 ) Medications - No data to display MDM elements: The patient presented with chief complaint of with nasal congestion/sinus congestion, backache and headache for the past 5 days after his father had a similar illness, he took a home COVID test that was negative, he comes in for a work note today. The differential diagnosis associated with this patient's presentation includes COVID, influenza, RSV, sinus congestion/infection. Our workup consisted of ordering/reviewing: COVID influenza RSV is negative will treat with augmentin. The patient will be Discharged. Patient is in agreement with this plan. PROCEDURES: Unless otherwise noted below, none Procedures CRITICAL CARE TIME None FINAL IMPRESSION 1. Sinus congestion DISPOSITION Discharge 05/14/2023 01:31:46 PM PATIENT REFERRED TO: Marika Palomo MD [address] [address] As needed DISCHARGE MEDICATIONS: New Prescriptions AMOXICILLIN-CLAVULANATE (AUGMENTIN) 875-125 MG TABLET Take 1 tablet by mouth in the morning and 1 tablet in the evening. Do all this for 7 days. (Comment: Please note this report has been produced using speech recognition software and may contain errors related to that system including errors in grammar, punctuation, and spelling, as well as words and phrases that may be inappropriate. If there are any questions or concerns please feel free to contact the dictating provider for clarification.) Isha Martinez MD (electronically signed) Emergency Medicine Provider Isha Martinez MD 05/14/23 1332 [facility] 12-26-2022 Hospital Discharg e instructions Patient Education 12/26/2022 21:44:54 Vomiting (Adult) Vomiting (Adult) Vomiting is a common symptom that may be due to different causes. These include gastroenteritis ( stomach flu ), food poisoning and gastritis. There are other more serious causes of vomiting which may be hard to diagnose early in the illness. Therefore, it is important to watch for the warning signs listed below. The main danger from repeated vomiting is dehydration. This is due to excess loss of water and minerals from the body. When this occurs, your body fluids must be replaced. Home care If symptoms are severe, rest at home for the next 24 hours. Because your symptoms may be from an infection, wash your hands often and well. If soap and water are not available, use alcohol-based master merchandiser to keep from spreading the infection to others. Wash your hands for at least 20 seconds. Humming the happy birthday song twice while you wash is an easy way to make sure you've washed for 20 seconds. Wash your hands after using the toilet, before and after preparing food, before eating food, after changing a diaper, cleaning a wound, caring for a sick person, and blowing your nose, coughing, or sneezing. You should also wash your hands after caring for someone who is sick, touching pet food, or treats, and touching an animal, or animal waste. You may use acetaminophen or NSAID medicines like ibuprofen or naproxen to control fever, unless another medicine was prescribed. If you have chronic liver or kidney disease or ever had a stomach ulcer or gastrointestinal bleeding, talk with your doctor before using these medicines. Aspirin should never be used in anyone under 18 years of age who is ill with a fever. It may cause severe liver damage. Don't use NSAID medicines if you are already taking one for another condition (like arthritis) or are on aspirin (such as for heart disease, or after a stroke) Don't use tobacco and or drink alcohol, which may worsen your symptoms. If medicines for vomiting were prescribed, take as directed. Once vomiting stops, then follow these guidelines: During the first 12 to 24 hours follow the diet below: Fruit juices. Apple, grape juice, clear fruit drinks, and electrolyte replacement drinks. Beverages. Soft drinks without caffeine; mineral water (plain or flavored), decaffeinated tea and coffee. Soups. Clear broth and bouillon Desserts. Plain gelatin, ice pops, and fruit juice bars. As you feel better, you may add 6 to 8 ounces of yogurt per day. During the next 24 hours you may add the following to the above: Hot cereal, plain toast, bread, rolls, crackers Plain noodles, rice, mashed potatoes, chicken noodle or rice soup Unsweetened canned fruit such as applesauce, bananas (avoid pineapple and citrus) Limit caffeine and chocolate. No spices or seasonings except salt. During the next 24 hours: Gradually resume a normal diet, as you feel better and your symptoms lessen. Follow-up care Follow up with your healthcare provider, or as advised. When to seek medical advice Call your healthcare provider right away if any of these occur: Constant right-sided lower belly pain or increasing general belly pain Continued vomiting (unable to keep liquids down) for 24 hours Vomiting blood or coffee grounds Swollen belly Frequent diarrhea (more than 5 times a day); blood (red or black color) or mucus in diarrhea Reduced urine output or extreme thirst Weakness, dizziness or fainting Unusually drowsy or confused Fever of 100.4 F (38 C) oral or higher, or as directed Yellow color of the eyes or skin [id number] [employer]. [address] [place] [address], [place] [address]. All rights reserved. This information is not intended as a substitute for professional medical care. Always follow your healthcare professional's instructions. Follow Up Care 12/26/2022 21:27:55 With:MARIKA PALOMO Address: [address] [address] [phone] Business (1) When:2-4 days Comments:Drink plenty fluids, use ondansetron as needed for nausea. Slowly advance your diet. Follow-up closely with your doctor, return if any worsening or concerning symptoms. [facility] 12-26-2022 Emergency department Discharge summary Discharge Instructions Thank you for allowing [facility] to assist you with your healthcare needs. The following is important discharge information regarding your hospital visit. Diagnosis from Today's Visit Generalized body aches Vomiting Vomiting What to Do Next Instructions from Your Care Team No qualifying data available. Post Acute Orders No qualifying data available. You Need to Schedule the Following Appointments Follow Up with MARIKA PALOMO When Within 2-4 days Why: Drink plenty fluids, use ondansetron as needed for nausea. Slowly advance your diet. Follow-up closely with your doctor, return if any worsening or concerning symptoms. Where: [address] [address] [phone] Business (1) Allergies Cats Medications Please ask your primary doctor or pharmacist before taking any other medication not listed, including over the counter drugs, herbal medications, vitamins and or supplements as they may interact with your home medications. What How Much When Instructions Last Dose New ondansetron (ondansetron 4 mg oral tablet, disintegrating) 1 tab(s) by mouth Three (3) times a day Duration: 3 Days Printed Prescription Please take this list to your next doctor s visit. Bring all medications you take, including over the counter medications, herbals and other supplements with you to your doctor s visit. Patients and families are reminded to discard old lists and to update any records with all medication providers or retail pharmacies. Education Materials Vomiting (Adult) Vomiting is a common symptom that may be due to different causes. These include gastroenteritis ( stomach flu ), food poisoning and gastritis. There are other more serious causes of vomiting which may be hard to diagnose early in the illness. Therefore, it is important to watch for the warning signs listed below. The main danger from repeated vomiting is dehydration. This is due to excess loss of water and minerals from the body. When this occurs, your body fluids must be replaced. Home care If symptoms are severe, rest at home for the next 24 hours. Because your symptoms may be from an infection, wash your hands often and well. If soap and water are not available, use alcohol-based master merchandiser to keep from spreading the infection to others. Wash your hands for at least 20 seconds. Humming the happy birthday song twice while you wash is an easy way to make sure you've washed for 20 seconds. Wash your hands after using the toilet, before and after preparing food, before eating food, after changing a diaper, cleaning a wound, caring for a sick person, and blowing your nose, coughing, or sneezing. You should also wash your hands after caring for someone who is sick, touching pet food, or treats, and touching an animal, or animal waste. You may use acetaminophen or NSAID medicines like ibuprofen or naproxen to control fever, unless another medicine was prescribed. If you have chronic liver or kidney disease or ever had a stomach ulcer or gastrointestinal bleeding, talk with your doctor before using these medicines. Aspirin should never be used in anyone under 18 years of age who is ill with a fever. It may cause severe liver damage. Don't use NSAID medicines if you are already taking one for another condition (like arthritis) or are on aspirin (such as for heart disease, or after a stroke) Don't use tobacco and or drink alcohol, which may worsen your symptoms. If medicines for vomiting were prescribed, take as directed. Once vomiting stops, then follow these guidelines: During the first 12 to 24 hours follow the diet below: Fruit juices. Apple, grape juice, clear fruit drinks, and electrolyte replacement drinks. Beverages. Soft drinks without caffeine; mineral water (plain or flavored), decaffeinated tea and coffee. Soups. Clear broth and bouillon Desserts. Plain gelatin, ice pops, and fruit juice bars. As you feel better, you may add 6 to 8 ounces of yogurt per day. During the next 24 hours you may add the following to the above: Hot cereal, plain toast, bread, rolls, crackers Plain noodles, rice, mashed potatoes, chicken noodle or rice soup Unsweetened canned fruit such as applesauce, bananas (avoid pineapple and citrus) Limit caffeine and chocolate. No spices or seasonings except salt. During the next 24 hours: Gradually resume a normal diet, as you feel better and your symptoms lessen. Follow-up care Follow up with your healthcare provider, or as advised. When to seek medical advice Call your healthcare provider right away if any of these occur: Constant right-sided lower belly pain or increasing general belly pain Continued vomiting (unable to keep liquids down) for 24 hours Vomiting blood or coffee grounds Swollen belly Frequent diarrhea (more than 5 times a day); blood (red or black color) or mucus in diarrhea Reduced urine output or extreme thirst Weakness, dizziness or fainting Unusually drowsy or confused Fever of 100.4 F (38 C) oral or higher, or as directed Yellow color of the eyes or skin [employer]. [address] [place] [address]. All rights reserved. This information is not intended as a substitute for professional medical care. Always follow your healthcare professional's instructions. Additional Information VACCINATE! IT SAVES LIVES! Members of the community who have not yet received the COVID-19 vaccine and would like to receive it can visit one of [facility] vaccine clinics. There are many vaccine clinic locations within the [facility]. For locations and available times, please visit [email or web address] It is important to note that some COVID mobile vaccine clinics are held outdoors and may be canceled in rainy or stormy conditions. To learn more about pediatric vaccinations (ages 5-11), we invite you to visit the [facility] webpage. [email or web address].[facility].org/p ages/3634-Gwfek-Ibmujybaiqw-Freq vlprgo-Qowmz-Cfshjvjqj.html To learn more about the COVID-19 vaccine, we invite you to visit the CDC website for a list of frequently asked questions. https://www.cdc.gov/coronavirus/ 2019-ncov/vaccines/faq.html [facility] Patient Portal Access Instructions: Stay connected with your healthcare team and access your personal medical information anytime with the [facility] Patient Portal. If you would like a full copy of your medical records please contact the [facility] Medical Records Department Sunday through Sunday between 8a.m. and 4:30p.m. Please follow the directions below to access the portal: 1.Access the email account you provided upon registration to the [facility].2.Look for an invitation email from [facility].3.Open the email and access the invitation link: Accept Invitation to [facility]4.Fill in the required shepard to create your account. Sign into www.[employer] with your username and password that you created in the above steps to stay up to date. You can then view a summary of results, a summary of your visits, and the ability to download your summaries to your computer or send the information securely to a physician. Remember that your healthcare information is confidential, so carefully consider who you will allow to register on the [facility] Patient Portal for access to your information. You can also access the [facility] Patient Portal on the [employer] sea. Simply click on Health Records under Health Data and then click on the [facility] logo. HOW TO SAFELY DISPOSE OF PRESCRIPTION MEDICATIONS Please use one of the following methods to safely dispose of your unused medications. 1.Use a drug disposal kit: the drug disposal pouch allows you to safely discard your old and unused drugs. Ask your nurse to give you one when you are discharged.2.Visit a local take-back location: Many local pharmacies and police departments have programs that collect old and unwanted prescription drugs. Call your local pharmacy or go to http://[facility]/3F5Pa4e to find one close to you.3.Make use of household items: Use cat litter or old coffee grounds to dispose medications if other options are not available. Mix your drugs with these household products, seal them in an airtight container and throw it into the garbage. Call [facility]: [phone] to be sure your drugs can be disposed of in this way. Some medicines may require a different approach.4.Never flush your medications down the toilet. IF YOU HAVE BEEN PRESCRIBED AN OPIOIDS FOR PAIN If you have been prescribed an opioid (such as hydrocodone, oxycodone or morphine), it is critical to understand the possible side effects and risks of opioid pain medications. Even when taken as directed, opioids can have several side effects including: Tolerance, meaning you might need to take more of a medication for the same pain relief. Nausea, vomiting and/or constipation. Sleepiness, dizziness, dry mouth, confusion, depression or itching. Physical dependence, meaning you have withdrawal symptoms when a medication is stopped ? this can develop within a few days. KNOW YOUR RESPONSIBILITIES It is important to know exactly how much and how often to take the opioid pain medications you are prescribed. Never take opioids in higher amounts or more often than prescribed. Do not combine opioids with alcohol or other drugs that cause drowsiness, such as benzodiazepines, also known as benzos, including diazepam and alprazolam, muscle relaxants or sleep aids. Never sell or share prescription opioids. This is illegal. Store opioids in a secure place and out of reach of others (including children, family, friends and visitors). The last page(s) of this document has been signed and retained as a CHART COPY Signatures Patient Education Materials Vomiting (Adult) Medication Leaflets My discharge plan and instructions have been reviewed and explained to me and I,HAMMAD LION understand my current condition and have read and understand these discharge instructions. I have received a written copy of the plan/instructions. If I have questions, I am aware that I should contact my doctor. Patient/Sales Support Consultant Signature: Date/Time: Relationship to Patient: Witness Name/Signature: Date/Time: [facility] 10-05-2022 Miscellaneous Notes Called patient. Voicemail box that is not set up yet. Channelkithart message sent. Vangie Al LPN documented in this encounter [facility] 09-27-2022 Miscellaneous Notes Pt confirmed cysto with Dr. Liu in [place] [facility] 10/20/22 @ 8:30am. His CT 10/13/22. Ref by Norm Jimenez for gross hematuria. Lily documented in this encounter [facility] 09-27-2022 Miscellaneous Notes Pt called and is notified of providers message and instructions. Pt voices understanding. Belkys Gandhi RN Attempted to call pt back, no answer & message said his voicemail box has not been set up yet. Sophy Vargas LPN There is nothing in urology note regarding that one. I would check with them on that. Patient was advised that he should go to jury duty so he is not late. He can let them know the situation and they can call or he can call back if needed. PCP is already in the first room for the morning. Patient reports he is having blood in urine for 3 weeks now. Saw urologist yesterday. Was instructed not to hold his urine. Reports he is due in Jury duty today at 8:45 am at [employer]. Asking if pcp would write note for him to be excused from jury duty d/t health. Patient is waiting in the parking lot. Please phone him on cell. documented in this encounter [facility] 09-22-2022 Miscellaneous Notes Patient informed and verbalized understanding. Briseida Murphy His labs and urine are all ok. Except his potassium is borderline high. Is likely due to lab error. Recheck potassium in one week documented in this encounter [facility] 09-20-2022 Note HNO ID: [id number] Author: Marika Palomo MD Service: ? Author Type: Physician Type: Progress Notes Filed: 09/20/2022 12:08 PM Note Text: Patient presents with: Hematuria HPI: Patient presents today for office visit for intermittent gross hematuria X 3 wks. Seen in [facility] 09/06/22. UA and ultrasound of the testicles both normal. I do not have any notes from the er. No frequency or urgency with urination Some burning with urination but not always No discharge from penis Some mid back pain. Hx of Scoliosis. Nothing new . No flank pain. No fever No chills No new nausea. Hx of reflux. No vomiting. Has had some pain in his testicles for years. No hx of stones. Has had unprotected intercourse with three woman over the last six months. Has constipation since he was a child. Can go two to five days between bm No blood in the stool or black stools. MEDICATIONS: Current Outpatient Medications Medication Sig predniSONE (DELTASONE) 10 mg tablet Take 4 tabs daily for 3 days, then 2 tabs daily for 3 days, then 1 tab daily for 3 days with food. (Patient not taking: Reported on 01/03/2022) rizatriptan (MAXALT-BOLT LABELER) 10 mg disintegrating tablet Take 1 tablet by mouth as needed. May repeat in 2 hours if needed (Patient not taking: Reported on 12/27/2021 ) sertraline (ZOLOFT) 50 mg tablet 1/2 tab daily x 4 weeks and increase to 50mg daily (Patient not taking: Reported on 12/27/2021 ) amitriptyline (ELAVIL) 10 mg tablet Take 1 tablet by mouth daily at bedtime. (Patient not taking: Reported on 12/27/2021 ) ondansetron orally disintegrating (ZOFRAN ODT) 4 mg disintegrating tablet Take 1 tablet by mouth every 6 hours as needed for nausea/vomiting. (Patient not taking: Reported on 12/27/2021 ) No current facility-administered medications for this visit. ALLERGIES: ALLERGIES Allergen Reactions [facility] [Chlorphe* Rash PAST MEDICAL HISTORY Diagnosis Date Acute maxillary sinusitis 06/[address] Allergic rhinitis, cause unspecified testing positive for dust and dust mites only Depression 07/15/2018 Esophageal reflux 01/2005 per [place] [facility]ER[facility] scan: 19 episodes reflux in 1 hour Headache, unspecified headache type 07/25/2013 History of concussion 07/15/2018 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 Rainer Armstrong PAST SURGICAL HISTORY Procedure Laterality Date ADENOIDECTOMY PRIMARY Adenoidectomy TONSILLECTOMY PRIMARY/SECONDARY Tonsillectomy FAMILY HISTORY Problem Relation Age of Onset Psychiatry Mother depression GI Mother PUD other (lung) Father spots on lung: pending biopsy Social History Tobacco Use Smoking status: Never Passive exposure: Yes Smokeless tobacco: Former Tobacco comments: Vapes Vaping Use Vaping Use: current everyday user Substances: Nicotine, Flavoring Devices: Pre-filled or refillable cartridge Substance Use Topics Alcohol use: Yes Comment: rarely Drug use: Not Currently Reviewed current medications, allergies, past medical history, surgical history, family history and social history today. REVIEW OF SYSTEMS All other reviewed and negative other than HPI. VITALS: BP 128/70 Pulse 87 Ht 175.3 cm (5' 9 ) Wt 81.6 kg (180 lb) SpO2 98% BMI 26.58 kg/m? Last 4 Encounter Wt Readings: Date: Wt: 01/03/2022 82.6 kg (182 lb) 12/27/2021 83.6 kg (184 lb 3.2 oz) 10/31/2021 83.3 kg (183 lb 9.6 oz) 08/08/2021 80.3 kg (177 lb) PHYSICAL EXAMINATION: General appearance: Well appearing, alert, in no acute distress, well-hydrated, well nourished. Skin: Skin color, texture, turgor normal, no suspicious rashes or lesions Head: Normocephalic, no masses, lesions, tenderness or abnormalities Eyes: Anicteric sclera. Pupils are equally round and reactive to light. Extraocular movements are intact. Back: Normal exam, no cva tenderness Lungs: Lungs clear to auscultation. No wheezing, rhonchi, rales Heart: RRR without murmur, gallop, or rubs. No ectopy Abdomen: Normal abdominal exam, Abdomen soft, non-tender. Bowel sounds normal. No masses, organomegaly Testicular exam is benign. ASSESSMENT/PLAN: 1. Gross hematuria - ICD9: 599.71, ICD10: R31.0 (primary diagnosis) - is basically painless. Unknown etiology. Get records from [facility]. Check labs and see urologyl - URINALYSIS, WITH MICROSCOPIC - URINE CULTURE - GC/CHLAMYDIA AMPLIF, URINE - CBC + DIFF - COMP METABOLIC PANEL - CONSULT TO UROLOGY 2. Chronic constipation - ICD9: 564.00, ICD10: K59.09 - add miralax daily. Call If any issues. Marika Palomo MD [facility] 09-20-2022 Instructions Marika Palomo MD - 09/20/2022 12:05 PM EDT Miralax use over the counter. documented in this encounter [facility] 09-20-2022 History of Presen t illness Narrative Patient presents with: Hematuria HPI: Patient presents today for office visit for intermittent gross hematuria X 3 wks. Seen in [place] [facility] 09/06/22. UA and ultrasound of the testicles both normal. I do not have any notes from the er. No frequency or urgency with urination Some burning with urination but not always No discharge from penis Some mid back pain. Hx of Scoliosis. Nothing new . No flank pain. No fever No chills No new nausea. Hx of reflux. No vomiting. Has had some pain in his testicles for years. No hx of stones. Has had unprotected intercourse with three woman over the last six months. Has constipation since he was a child. Can go two to five days between bm No blood in the stool or black stools. MEDICATIONS: Current Outpatient Medications Medication Sig predniSONE (DELTASONE) 10 mg tablet Take 4 tabs daily for 3 days, then 2 tabs daily for 3 days, then 1 tab daily for 3 days with food. (Patient not taking: Reported on 01/03/2022) rizatriptan (MAXALT-BOLT LABELER) 10 mg disintegrating tablet Take 1 tablet by mouth as needed. May repeat in 2 hours if needed (Patient not taking: Reported on 12/27/2021 ) sertraline (ZOLOFT) 50 mg tablet 1/2 tab daily x 4 weeks and increase to 50mg daily (Patient not taking: Reported on 12/27/2021 ) amitriptyline (ELAVIL) 10 mg tablet Take 1 tablet by mouth daily at bedtime. (Patient not taking: Reported on 12/27/2021 ) ondansetron orally disintegrating (ZOFRAN ODT) 4 mg disintegrating tablet Take 1 tablet by mouth every 6 hours as needed for nausea/vomiting. (Patient not taking: Reported on 12/27/2021 ) No current facility-administered medications for this visit. ALLERGIES: ALLERGIES Allergen Reactions [facility] [Chlorphe* Rash PAST MEDICAL HISTORY Diagnosis Date Acute maxillary sinusitis 06/[address] Allergic rhinitis, cause unspecified testing positive for dust and dust mites only Depression 07/15/2018 Esophageal reflux 01/2005 [place]: 19 episodes reflux in 1 hour Headache, unspecified headache type 07/25/2013 History of concussion 07/15/2018 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 Rainer Armstrong PAST SURGICAL HISTORY Procedure Laterality Date ADENOIDECTOMY PRIMARY <AGE 12 age 4 Adenoidectomy TONSILLECTOMY PRIMARY/SECONDARY <AGE 12 age 4 Tonsillectomy FAMILY HISTORY Problem Relation Age of Onset Psychiatry Mother depression GI Mother PUD other (lung) Father spots on lung: pending biopsy Social History Tobacco Use Smoking status: Never Passive exposure: Yes Smokeless tobacco: Former Tobacco comments: Vapes Vaping Use Vaping Use: current everyday user Substances: Nicotine, Flavoring Devices: Pre-filled or refillable cartridge Substance Use Topics Alcohol use: Yes Comment: rarely Drug use: Not Currently Reviewed current medications, allergies, past medical history, surgical history, family history and social history today. REVIEW OF SYSTEMS All other reviewed and negative other than HPI. VITALS: BP 128/70 Pulse 87 Ht 175.3 cm (5' 9 ) Wt 81.6 kg (180 lb) SpO2 98% BMI 26.58 kg/m Last 4 Encounter Wt Readings: Date: Wt: 01/03/2022 82.6 kg (182 lb) 12/27/2021 83.6 kg (184 lb 3.2 oz) 10/31/2021 83.3 kg (183 lb 9.6 oz) 08/08/2021 80.3 kg (177 lb) PHYSICAL EXAMINATION: General appearance: Well appearing, alert, in no acute distress, well-hydrated, well nourished. Skin: Skin color, texture, turgor normal, no suspicious rashes or lesions Head: Normocephalic, no masses, lesions, tenderness or abnormalities Eyes: Anicteric sclera. Pupils are equally round and reactive to light. Extraocular movements are intact. Back: Normal exam, no cva tenderness Lungs: Lungs clear to auscultation. No wheezing, rhonchi, rales Heart: RRR without murmur, gallop, or rubs. No ectopy Abdomen: Normal abdominal exam, Abdomen soft, non-tender. Bowel sounds normal. No masses, organomegaly Testicular exam is benign. ASSESSMENT/PLAN: 1. Gross hematuria - ICD9: 599.71, ICD10: R31.0 (primary diagnosis) - is basically painless. Unknown etiology. Get records from [facility]. Check labs and see urologyl - URINALYSIS, WITH MICROSCOPIC - URINE CULTURE - GC/CHLAMYDIA AMPLIF, URINE - CBC + DIFF - COMP METABOLIC PANEL - CONSULT TO UROLOGY 2. Chronic constipation - ICD9: 564.00, ICD10: K59.09 - add miralax daily. Call If any issues. Marika Palomo MD documented in this encounter [facility] 01-03-2022 Note HNO ID: [id number] Author: RT Jadyn(R) Service: Radiology Author Type: Technologist Type: Progress Notes Filed: 01/03/2022 6:28 PM Note Text: Radiology Service Progress Note PATIENT NAME: Hammad Lion DATE OF SERVICE: January 03, 2022 TIME: 6:21 PM PATIENT IDENTITY VERIFICATION COMPLETED USING TWO (2) IDENTIFIERS: Name and Date of confirmed by patient verbally. FALL SCREENING: Has the patient had 2 falls in the last year or 1 fall with injury or currently using an Ambulatory Assistive Device (Walker, Cane, Wheelchair, Crutches, etc.)? No PATIENT GENDER DATA: Male PATIENT RELEVANT IMPLANT DATA REVIEWED: Yes RADIOLOGY DEPARTMENT: General X-ray: Exam(s) Completed: Upper Extremity X-Ray(s): Wrist, right PERIPHERAL IV DATA: Not applicable SIGNED BY: RT Jadyn(R) January 03, 2022 6:21 PM [facility] 01-03-2022 Note HNO ID: [id number] Author: Marcella Christensen APRN.MATERIALS PLANNER/PRODUCTION PLANNER Service: ? Author Type: Nurse Practitioner Type: Progress Notes Filed: 01/03/2022 6:45 PM Note Text: Subjective The history is provided by the patient. No party plan selling distributor was used. HPI Hammad Lion is a 21 year old male who presents today for CC of right right pain that started on Sunday, he was sliding into third with hand bent playing softball. He has used ice, ibuprofen, and tylenol without relief with very little relief. No previous injury. BP 128/78 Pulse 64 Temp 36.6 ?C (97.9 ?F) Resp 20 Wt 82.6 kg (182 lb) SpO2 99% BMI 26.88 kg/m? Social History Tobacco Use Smoking status: Never Passive exposure: Yes Smokeless tobacco: Former Tobacco comments: Vapes Vaping Use Vaping Use: current everyday user Substances: Nicotine, Flavoring Devices: Pre-filled or refillable cartridge Substance Use Topics Alcohol use: Yes Comment: rarely Drug use: Not Currently PAST MEDICAL HISTORY Diagnosis Date Acute maxillary sinusitis 06/[address] Allergic rhinitis, cause unspecified testing positive for dust and dust mites only Depression 07/15/2018 Esophageal [place]/2005 [place]: 19 episodes reflux in 1 hour Headache, unspecified headache type 07/25/2013 History of concussion 07/15/2018 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 Rainer Armstrong I have confirmed and edited as necessary, the [facility] Review of Systems Constitutional: Negative for chills and fever. Musculoskeletal: Positive for joint pain (right wrist). Negative for myalgias. Skin: Negative for itching and rash. All other systems reviewed and are negative. Objective Physical Exam Vitals and nursing note reviewed. Cardiovascular: Pulses: Radial pulses are 2+ on the right side and 2+ on the left side. Pulmonary: Effort: Pulmonary effort is normal. Musculoskeletal: Right wrist: Swelling (mild), tenderness, bony tenderness and snuff box tenderness present. No crepitus. Decreased range of motion (extension, supination). Normal pulse. Left wrist: Normal. Comments: Neurovascular intact Skin: General: Skin is warm and dry. Neurological: Mental Status: He is alert and oriented to person, place, and time. Sensory: Sensation is intact. Deep Tendon Reflexes: Reflexes are normal and symmetric. Psychiatric: Mood and Affect: Affect normal. ASSESSMENT/PLAN: 1. Right wrist pain - ICD9: 719.43, ICD10: M25.531 Rest, ice, elevation, antwan wrap or wrist splint as needed for comfort. Tylenol (generic acetaminophen) 500 mg-2 tabs every 8 hrs. as needed for fever and aches Ibuprofen 600 mg (3-200mg tablets) every 6 hours if pain persists beyond 10-14 days there are times where a repeat x-ray is needed to rule out occult fracture Follow up with ortho as needed - XR WRIST INJURY 4V PA/LAT/OBL/SCAPH RIGHT IMPRESSION: No Acute Fracture. RESULT: 3 views of the right wrist with a navicular view show no acute osseous, articular or soft tissue abnormality. The radiocarpal and intercarpal articulations are intact. Interpreted by : VICTORINO MARTIN MD Diagnosis and treatment plan were discussed and questions were answered to the patient's satisfaction. Pt acknowledged understanding of concepts and follow up plan. Specific signs and symptoms that would indicate the need for higher level of care were discussed in detail warranting prompt ER evaluation. Marcella Christensen APRN.MATERIALS PLANNER/PRODUCTION PLANNER [facility] 12-27-2021 Note HNO ID: [id number] Author: Kaleb Barnhart APRN.KATIE Service: ? Author Type: Nurse Practitioner Type: Progress Notes Filed: 12/27/2021 7:41 PM Note Text: Subjective HPI Nontoxic-appearing male presents urgent care [facility] [place] exposure. Patient states was exposed to [place] 2 to 3 days ago Associated symptoms slightly painful pruritic erythematous rash on lips back stomach and groin. Has used OTC medications this has not helped. Additionally patient did use bleach. Denies any significant pain. Stated it is slightly painful if he does itch the area. Denies any fevers nausea vomiting abdominal pain dysuria frequency urgency testicular pain scrotal swelling change in bowel or bladder habits. Past medical history prescription medication use allergies reviewed. .Patient presents with: Rash: (LT) eye, groin, face, upper torso PAST MEDICAL HISTORY Diagnosis Date - Acute maxillary sinusitis 06/[address] - Allergic rhinitis, cause unspecified testing positive for dust and dust mites only - Depression 07/15/2018 - Esophageal [place]/2005 [place]: 19 episodes reflux in 1 hour - Headache, unspecified headache type 07/25/2013 - History of concussion 07/15/2018 - Lazy eye of left side 07/15/2018 - Nicotine abuse 07/15/2018 - PUD (peptic ulcer disease) 07/15/2018 - Type O blood, Rh positive - Unspecified asthma(493.90) followed by Dr. Rainer Armstrong PAST SURGICAL HISTORY Procedure Laterality Date - ADENOIDECTOMY PRIMARY Adenoidectomy - TONSILLECTOMY PRIMARY/SECONDARY Tonsillectomy ALLERGIES [facility] [[id number]] MEDICATIONS rizatriptan (MAXALT-BOLT LABELER) 10 mg disintegrating tablet Take 1 tablet by mouth as needed. May repeat in 2 hours if needed sertraline (ZOLOFT) 50 mg tablet 1/2 tab daily x 4 weeks and increase to 50mg daily amitriptyline (ELAVIL) 10 mg tablet Take 1 tablet by mouth daily at bedtime. ondansetron orally disintegrating (ZOFRAN ODT) 4 mg disintegrating tablet Take 1 tablet by mouth every 6 hours as needed for nausea/vomiting. FAMILY HISTORY Problem Relation Age of Onset - Psychiatry Mother depression - GI Mother PUD - other (lung) Father spots on lung: pending biopsy Social History Tobacco Use - Smoking status: Passive Smoke Exposure - Never Smoker - Smokeless tobacco: Former User - Tobacco comment: Vapes Vaping Use - Vaping Use: current everyday user - Substances: Nicotine, Flavoring - Devices: Pre-filled or refillable cartridge Substance Use Topics - Alcohol use: Yes Comment: rarely - Drug use: Not Currently BP 130/76 Pulse 95 Temp 36.8 ?C (98.2 ?F) Resp 16 Wt 83.6 kg (184 lb 3.2 oz) SpO2 99% BMI 27.20 kg/m? Review of Systems Constitutional: Negative for chills, fever and malaise/fatigue. HENT: Negative for congestion, ear discharge, ear pain, sinus pain and sore throat. Eyes: Negative for blurred vision, pain, discharge and redness. Respiratory: Negative for cough, hemoptysis, sputum production, shortness of breath, wheezing and stridor. Cardiovascular: Negative for chest pain. Gastrointestinal: Negative for abdominal pain, diarrhea, nausea and vomiting. Musculoskeletal: Negative for myalgias. Skin: Positive for itching and rash. Neurological: Negative for dizziness and headaches. Objective Physical Exam Constitutional: General: He is not in acute distress. Appearance: He is not diaphoretic. HENT: Head: Normocephalic. Mouth/Throat: Mouth: Mucous membranes are moist. Pharynx: Oropharynx is clear. No oropharyngeal exudate or posterior oropharyngeal erythema. Eyes: Conjunctiva/sclera: Conjunctivae normal. Pupils: Pupils are equal, round, and reactive to light. Cardiovascular: Rate and Rhythm: Normal rate and regular rhythm. Heart sounds: Normal heart sounds. Pulmonary: Effort: Pulmonary effort is normal. No tachypnea, accessory muscle usage or respiratory distress. Breath sounds: Normal breath sounds. No stridor. No wheezing, rhonchi or rales. Abdominal: Palpations: Abdomen is soft. Tenderness: There is no abdominal tenderness. Musculoskeletal: Cervical back: Normal range of motion and neck supple. No rigidity or tenderness. Lymphadenopathy: Cervical: No cervical adenopathy. Skin: General: Skin is warm and dry. Comments: Maculopapular rash noted on highlighted areas. Patient does have some scabbing to face. Patient states he did use bleach on this area. No visual changes eye pain pain with EOMs flashes lights and floaters. No eye involvement. Neurological: Mental Status: He is alert and oriented to person, place, and time. ASSESSMENT/PLAN: 1. Rash - ICD9: 782.1, ICD10: R21 Patient diagnosed with rash. Placed on prednisone taper. We discussed prednisone and peptic ulcer disease. We discussed not taking with NSAIDs. Avoiding alcohol. Patient was educated on supportive therapies. Patient martín (more content not included)... [facility] 12-27-2021 History of Presen t illness Narrative Images from the original note were not included. Subjective HPI Nontoxic-appearing male presents urgent care [facility] [place] exposure. Patient states was exposed to [place] 2 to 3 days ago Associated symptoms slightly painful pruritic erythematous rash on lips back stomach and groin. Has used OTC medications this has not helped. Additionally patient did use bleach. Denies any significant pain. Stated it is slightly painful if he does itch the area. Denies any fevers nausea vomiting abdominal pain dysuria frequency urgency testicular pain scrotal swelling change in bowel or bladder habits. Past medical history prescription medication use allergies reviewed. 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 Rainer Armstrong PAST SURGICAL HISTORY Procedure Laterality Date ADENOIDECTOMY PRIMARY <AGE 12 age 4 Adenoidectomy TONSILLECTOMY PRIMARY/SECONDARY <AGE 12 age 4 Tonsillectomy ALLERGIES [facility] [[id number]-[id number]] MEDICATIONS rizatriptan (MAXALT-BOLT LABELER) 10 mg disintegrating tablet Take 1 tablet by mouth as needed. May repeat in 2 hours if needed sertraline (ZOLOFT) 50 mg tablet 1/2 tab daily x 4 weeks and increase to 50mg daily amitriptyline (ELAVIL) 10 mg tablet Take 1 tablet by mouth daily at bedtime. ondansetron orally disintegrating (ZOFRAN ODT) 4 mg disintegrating tablet Take 1 tablet by mouth every 6 hours as needed for nausea/vomiting. FAMILY HISTORY Problem Relation Age of Onset Psychiatry Mother depression GI Mother PUD other (lung) Father spots on lung: pending biopsy Social History Tobacco Use Smoking status: Passive Smoke Exposure - Never Smoker Smokeless tobacco: Former User Tobacco comment: Vapes Vaping Use Vaping Use: current everyday user Substances: Nicotine, Flavoring Devices: Pre-filled or refillable cartridge Substance Use Topics Alcohol use: Yes Comment: rarely Drug use: Not Currently BP 130/76 Pulse 95 Temp 36.8 C (98.2 F) Resp 16 Wt 83.6 kg (184 lb 3.2 oz) SpO2 99% BMI 27.20 kg/m Review of Systems Constitutional: Negative for chills, fever and malaise/fatigue. HENT: Negative for congestion, ear discharge, ear pain, sinus pain and sore throat. Eyes: Negative for blurred vision, pain, discharge and redness. Respiratory: Negative for cough, hemoptysis, sputum production, shortness of breath, wheezing and stridor. Cardiovascular: Negative for chest pain. Gastrointestinal: Negative for abdominal pain, diarrhea, nausea and vomiting. Musculoskeletal: Negative for myalgias. Skin: Positive for itching and rash. Neurological: Negative for dizziness and headaches. Objective Physical Exam Constitutional: General: He is not in acute distress. Appearance: He is not diaphoretic. HENT: Head: Normocephalic. Mouth/Throat: Mouth: Mucous membranes are moist. Pharynx: Oropharynx is clear. No oropharyngeal exudate or posterior oropharyngeal erythema. Eyes: Conjunctiva/sclera: Conjunctivae normal. Pupils: Pupils are equal, round, and reactive to light. Cardiovascular: Rate and Rhythm: Normal rate and regular rhythm. Heart sounds: Normal heart sounds. Pulmonary: Effort: Pulmonary effort is normal. No tachypnea, accessory muscle usage or respiratory distress. Breath sounds: Normal breath sounds. No stridor. No wheezing, rhonchi or rales. Abdominal: Palpations: Abdomen is soft. Tenderness: There is no abdominal tenderness. Musculoskeletal: Cervical back: Normal range of motion and neck supple. No rigidity or tenderness. Lymphadenopathy: Cervical: No cervical adenopathy. Skin: General: Skin is warm and dry. Comments: Maculopapular rash noted on highlighted areas. Patient does have some scabbing to face. Patient states he did use bleach on this area. No visual changes eye pain pain with EOMs flashes lights and floaters. No eye involvement. Neurological: Mental Status: He is alert and oriented to person, place, and time. ASSESSMENT/PLAN: 1. Rash - ICD9: 782.1, ICD10: R21 Patient diagnosed with rash. Placed on prednisone taper. We discussed prednisone and peptic ulcer disease. We discussed not taking with NSAIDs. Avoiding alcohol. Patient was educated on supportive therapies. Patient will follow up with primary care provider as needed. Patient was instructed to immediately proceed to emergency room for any new, worsening, or symptoms lasting longer than anticipated. The patient's clinical presentation is otherwise unremarkable at this time. Based on exam and clinical finding, the patient is stable for discharge. Plan of care was discussed with patient. Patient verbalizes understanding and agrees to plan of care. This note was generated using [employer] software. It may contain errors in wording, punctuation, or spelling. Kaleb Barnhart APRN.KATIE documented in this encounter [facility] 11-01-2021 Miscellaneous Notes Spoke with pt and information listed below given. Pt verbalizes understanding. Jasmin Shaw LPN Please notify that lab testing negative for herpes/shingles. Continue with f/u as discussed during visit. documented in this encounter [facility] 10-31-2021 Note HNO ID: [id number] Author: Kaleb Barnhart APRN.KATIE Service: ? Author Type: Nurse Practitioner Type: Progress Notes Filed: 10/31/2021 6:31 PM Note Text: Subjective HPI Nontoxic-appearing male presents urgent care chief plaint rash. Duration of symptoms 2 days. Associated symptoms slightly painful pruritic erythematous rash on lips and groin. Patient states he is concerned this may be herpes. 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 Has not used any OTC medications. Denies any significant pain. Stated it is slightly painful if he does itch the area. Denies history of herpes. Denies any fevers nausea vomiting abdominal pain dysuria frequency urgency testicular pain scrotal swelling change in bowel or bladder habits. Past medical history prescription medication use allergies reviewed. .Patient presents with: Rash: mouth and groin x2 days PAST MEDICAL HISTORY Diagnosis Date - Acute maxillary sinusitis 06/[address] - Allergic rhinitis, cause unspecified testing positive for dust and dust mites only - Depression 07/15/2018 - Esophageal reflux 01/2005 per [place] [facility] scan: 19 episodes reflux in 1 hour - Headache, unspecified headache type 07/25/2013 - History of concussion 07/15/2018 - Lazy eye of left side 07/15/2018 - Nicotine abuse 07/15/2018 - PUD (peptic ulcer disease) 07/15/2018 - Type O blood, Rh positive - Unspecified asthma(493.90) followed by Dr. Rainer Armstrong PAST SURGICAL HISTORY Procedure Laterality Date - ADENOIDECTOMY PRIMARY Adenoidectomy - TONSILLECTOMY PRIMARY/SECONDARY Tonsillectomy ALLERGIES [facility] [[id number]] MEDICATIONS rizatriptan (MAXALT-BOLT LABELER) 10 mg disintegrating tablet Take 1 tablet by mouth as needed. May repeat in 2 hours if needed sertraline (ZOLOFT) 50 mg tablet 1/2 tab daily x 4 weeks and increase to 50mg daily amitriptyline (ELAVIL) 10 mg tablet Take 1 tablet by mouth daily at bedtime. ondansetron orally disintegrating (ZOFRAN ODT) 4 mg disintegrating tablet Take 1 tablet by mouth every 6 hours as needed for nausea/vomiting. FAMILY HISTORY Problem Relation Age of Onset - Psychiatry Mother depression - GI Mother PUD - other (lung) Father spots on lung: pending biopsy Social History Tobacco Use - Smoking status: Passive Smoke Exposure - Never Smoker - Smokeless tobacco: Former User - Tobacco comment: Vapes Vaping Use - Vaping Use: current everyday user - Substances: Nicotine, Flavoring - Devices: Pre-filled or refillable cartridge Substance Use Topics - Alcohol use: Yes Comment: rarely - Drug use: Not Currently BP 142/98 Pulse 81 Temp 36.9 ?C (98.5 ?F) Resp 20 Wt 83.3 kg (183 lb 9.6 oz) SpO2 98% BMI 27.11 kg/m? Review of Systems Constitutional: Negative for chills, fever and malaise/fatigue. HENT: Negative for congestion, ear discharge, ear pain, sinus pain and sore throat. Eyes: Negative for blurred vision, pain, discharge and redness. Respiratory: Negative for cough, hemoptysis, sputum production, shortness of breath, wheezing and stridor. Cardiovascular: Negative for chest pain. Gastrointestinal: Negative for abdominal pain, diarrhea, nausea and vomiting. Genitourinary: Negative. Musculoskeletal: Negative for myalgias. Skin: Positive for itching and rash. Neurological: Negative for dizziness and headaches. Objective Physical Exam Constitutional: General: He is not in acute distress. Appearance: He is not diaphoretic. HENT: Head: Normocephalic. Mouth/Throat: Mouth: Mucous membranes are moist. Pharynx: Oropharynx is clear. No oropharyngeal exudate or posterior oropharyngeal erythema. Eyes: Conjunctiva/sclera: Conjunctivae normal. Pupils: Pupils are equal, round, and reactive to light. Cardiovascular: Rate and Rhythm: Normal rate and regular rhythm. Heart sounds: Normal heart sounds. Pulmonary: Effort: Pulmonary effort is normal. No tachypnea, accessory muscle usage or respiratory distress. Breath sounds: Normal breath sounds. No stridor. Abdominal: Palpations: Abdomen is soft. Tenderness: There is no abdominal tenderness. There is no right CVA tenderness, left CVA tenderness, guarding or rebound. Genitourinary: Pubic Area: Rash present. Penis: Circumcised. Testes: Right: Tenderness or swelling not present. Left: Tenderness or swelling not present. Epididymis: Right: No tenderness. Left: No tenderness. Comments: Rash noted shaft of penis. Rash was erythematous base macular papular lesions. No vesicles noted. No remote redness. Musculoskeletal: Cervical back: Normal range of motion and neck supple. No rigidity or tenderness. Lymphadenopathy: Cervical: No cervical adenopathy. Skin: General: Skin is warm and dry. Neurological: Mental Status: He is alert and oriented to person, place, and time. ASSESSMENT/PLAN: 1. Rash - ICD9: 782.1, ICD10: R21 (more content not included)... [facility] 10-31-2021 History of Presen t illness Narrative Subjective HPI Nontoxic-appearing male presents urgent care chief plaint rash. Duration of symptoms 2 days. Associated symptoms slightly painful pruritic erythematous rash on lips and groin. Patient states he is concerned this may be herpes. 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 Has not used any OTC medications. Denies any significant pain. Stated it is slightly painful if he does itch the area. Denies history of herpes. Denies any fevers nausea vomiting abdominal pain dysuria frequency urgency testicular pain scrotal swelling change in bowel or bladder habits. Past medical history prescription medication use allergies reviewed. .Patient presents with: Rash: mouth and groin x2 days PAST MEDICAL HISTORY Diagnosis Date Acute maxillary sinusitis 06/[address] Allergic rhinitis, cause unspecified testing positive for dust and dust mites only Depression 07/15/2018 Esophageal reflux 01/2005 per [place]: 19 episodes reflux in 1 hour Headache, unspecified headache type 07/25/2013 History of concussion 07/15/2018 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 Rainer Armstrong PAST SURGICAL HISTORY Procedure Laterality Date ADENOIDECTOMY PRIMARY <AGE 12 age 4 Adenoidectomy TONSILLECTOMY PRIMARY/SECONDARY <AGE 12 age 4 Tonsillectomy ALLERGIES [facility] [[id number]] MEDICATIONS rizatriptan (MAXALT-BOLT LABELER) 10 mg disintegrating tablet Take 1 tablet by mouth as needed. May repeat in 2 hours if needed sertraline (ZOLOFT) 50 mg tablet 1/2 tab daily x 4 weeks and increase to 50mg daily amitriptyline (ELAVIL) 10 mg tablet Take 1 tablet by mouth daily at bedtime. ondansetron orally disintegrating (ZOFRAN ODT) 4 mg disintegrating tablet Take 1 tablet by mouth every 6 hours as needed for nausea/vomiting. FAMILY HISTORY Problem Relation Age of Onset Psychiatry Mother depression GI Mother PUD other (lung) Father spots on lung: pending biopsy Social History Tobacco Use Smoking status: Passive Smoke Exposure - Never Smoker Smokeless tobacco: Former User Tobacco comment: Vapes Vaping Use Vaping Use: current everyday user Substances: Nicotine, Flavoring Devices: Pre-filled or refillable cartridge Substance Use Topics Alcohol use: Yes Comment: rarely Drug use: Not Currently BP 142/98 Pulse 81 Temp 36.9 C (98.5 F) Resp 20 Wt 83.3 kg (183 lb 9.6 oz) SpO2 98% BMI 27.11 kg/m Review of Systems Constitutional: Negative for chills, fever and malaise/fatigue. HENT: Negative for congestion, ear discharge, ear pain, sinus pain and sore throat. Eyes: Negative for blurred vision, pain, discharge and redness. Respiratory: Negative for cough, hemoptysis, sputum production, shortness of breath, wheezing and stridor. Cardiovascular: Negative for chest pain. Gastrointestinal: Negative for abdominal pain, diarrhea, nausea and vomiting. Genitourinary: Negative. Musculoskeletal: Negative for myalgias. Skin: Positive for itching and rash. Neurological: Negative for dizziness and headaches. Objective Physical Exam Constitutional: General: He is not in acute distress. Appearance: He is not diaphoretic. HENT: Head: Normocephalic. Mouth/Throat: Mouth: Mucous membranes are moist. Pharynx: Oropharynx is clear. No oropharyngeal exudate or posterior oropharyngeal erythema. Eyes: Conjunctiva/sclera: Conjunctivae normal. Pupils: Pupils are equal, round, and reactive to light. Cardiovascular: Rate and Rhythm: Normal rate and regular rhythm. Heart sounds: Normal heart sounds. Pulmonary: Effort: Pulmonary effort is normal. No tachypnea, accessory muscle usage or respiratory distress. Breath sounds: Normal breath sounds. No stridor. Abdominal: Palpations: Abdomen is soft. Tenderness: There is no abdominal tenderness. There is no right CVA tenderness, left CVA tenderness, guarding or rebound. Genitourinary: Pubic Area: Rash present. Penis: Circumcised. Testes: Right: Tenderness or swelling not present. Left: Tenderness or swelling not present. Epididymis: Right: No tenderness. Left: No tenderness. Comments: Rash noted shaft of penis. Rash was erythematous base macular papular lesions. No vesicles noted. No remote redness. Musculoskeletal: Cervical back: Normal range of motion and neck supple. No rigidity or tenderness. Lymphadenopathy: Cervical: No cervical adenopathy. Skin: General: Skin is warm and dry. Neurological: Mental Status: He is alert and oriented to person, place, and time. ASSESSMENT/PLAN: 1. Rash - ICD9: 782.1, ICD10: R21 - HSV 1,2/VZV AMP MOLECULAR DETECT Contact dermatitis versus HSV. No fluid-filled vesicles. Will test for HSV. We will treat accordingly to test results. Patient was educated on supportive therapies. Patient will follow up with primary care provider as needed. Patient was instructed to immediately proceed to emergency room for any new, worsening, or symptoms lasting longer than anticipated. The patient's clinical presentation is otherwise unremarkable at this time. Based on exam and clinical finding, the patient is stable for discharge. Plan of care was discussed with patient. Patient verbalizes understanding and agrees to plan of care. This note was generated using [employer] software. It may contain errors in wording, punctuation, or spelling. Kaleb Barnhart APRN.KATIE documented in this encounter [facility] documented as of this encounter (statuses as of 10/31/2021) [facility]09-16-2009 History of Past illness Narrative* Problem Noted Date Resolved Date Routine or child health check 02/10/2009 08/01/2012 Overview: 02/10/2009, from Dr. [place] documented as of this encounter (statuses as of 11/01/2021) [address]16-2009 History of Past illness Narrative* Problem Noted Date Resolved Date Routine infant or child health check 02/10/2009 08/01/2012 Overview: 02/10/2009, from Dr. [place] documented as of this encounter (statuses as of 12/27/2021) [address]16-2009 History of Past illness Narrative* Problem Noted Date Resolved Date Routine or child health check 02/10/2009 08/01/2012 Overview: 02/10/2009, from Dr. [place] documented as of this encounter (statuses as of 01/03/2022) [address]16-2009 History of Past illness Narrative* Problem Noted Date Resolved Date Routine infant or child health check 02/10/2009 08/01/2012 Overview: 02/10/2009, from Dr. [place] documented as of this encounter (statuses as of 09/20/2022) [address]16-2009 History of Past illness Narrative* Problem Noted Date Resolved Date Routine infant or child health check 02/10/2009 08/01/2012 Overview: 02/10/2009, from Dr. [place] documented as of this encounter (statuses as of 09/22/2022) [address]16-2009 History of Past illness Narrative* Problem Noted Date Resolved Date Routine or child health check 02/10/2009 08/01/2012 Overview: 02/10/2009, from Dr. [place] documented as of this encounter (statuses as of 09/27/2022) [address]16-2009 History of Past illness Narrative* Problem Noted Date Resolved Date Routine infant or child health check 02/10/2009 08/01/2012 Overview: 02/10/2009, from Dr. [place] documented as of this encounter (statuses as of 10/05/2022) [facility] + Plan note No data available for this section [facility] Tereseamirah Haro Evaluation note* Diagnosis Rash- Primary Rash and other nonspecific skin eruption documented in this encounter [facility] note* Diagnosis Rash- Primary Rash and other nonspecific skin eruption documented in this encounter [facility] note* Diagnosis Gross hematuria- Primary Chronic constipation Unspecified constipation documented in this encounter [facility] note* Diagnosis Hyperkalemia- Primary Hyperpotassemia documented in this encounter [facility] note* Diagnosis Sinus congestion- Primary Other diseases of nasal cavity and sinuses [facility] Attachments The following attachments cannot be sent through Care Everywhere. * Sinusitis Discharge Instructions, Adult ([place]) [facility] Family History No Family History Records FoundNo Family History Records FoundNo Family History Records FoundNo Family History Records FoundNo Family History Records Found No data available for this section No Family History Records FoundNo Family History Records Found Advance Directives No Advanced Directives Records FoundDocuments on File Type Date Recorded Patient Sales Support Consultant Expl anation Advance Directive(s) 08/08/2021 10:14 PM Advance Directive(s) 05/12/2021 11:53 AM Advance Directive(s) 11/06/2020 10:13 PM Advance Directive(s) 09/27/2020 5:57 AM Reason for Referral Specialty Diagnoses / Procedures Referred By Torrie calloway Referred To Contact Urology Diagnoses Gross hematuria Procedures CONSULT TO UROLOGY OFFICE/OUTPATIENT [facility] 60-74 MINUTES Marika Palomo MD [address] [place] [address] Referral ID Status Reason Start Date Expiration Date Visits Requested Visits Authorized [id number] Authorized PCP Requested Referral 09/20/2022 09/20/2023 1 1 Additional Source Comments (unrecognized sect ion and content) No Status Records FoundNo Status Records FoundNo Status Records FoundNo Status Records FoundNo Status Records FoundNo Status Records FoundNo Status Records Found INFORMATION SOURCE (unrecogn ized section and content) DATE CREATED AUTHOR AUTHOR'S ORGANIZ ATION 03/23/2018 [facility] DATE CREATED AUTHOR AUTHOR'S ORGANIZ ATION 09/27/2020 [facility] DATE CREATED AUTHOR AUTHOR'S ORGANIZ ATION 09/28/2022 [facility] DATE CREATED AUTHOR AUTHOR'S ORGANIZ ATION 10/07/2022 [facility] DATE CREATED AUTHOR AUTHOR'S ORGANIZ ATION 01/01/2023 [facility] ([place] DATE CREATED AUTHOR AUTHOR'S ORGANIZ ATION 05/15/2023 [facility] Source Comments (unrecognize d section and content) In the event this informatio n is protected by the Federal Confidentiality of Alcohol and Drug Abuse Patient Records regulations: The Federal rules restrict any use of the information to criminally investigate or prosecute any alcohol or drug abuse patient.[facility] the event this information is protected by the Federal Confidentiality of Alcohol and Drug Abuse Patient Records regulations: The Federal rules restrict any use of the information to criminally investigate or prosecute any alcohol or drug abuse patient.[facility] the event this information is protected by the Federal Confidentiality of Alcohol and Drug Abuse Patient Records regulations: The Federal rules restrict any use of the information to criminally investigate or prosecute any alcohol or drug abuse patient.[facility] the event this information is protected by the Federal Confidentiality of Alcohol and Drug Abuse Patient Records regulations: The Federal rules restrict any use of the information to criminally investigate or prosecute any alcohol or drug abuse patient.[facility] the event this information is protected by the Federal Confidentiality of Alcohol and Drug Abuse Patient Records regulations: The Federal rules restrict any use of the information to criminally investigate or prosecute any alcohol or drug abuse patient.[facility] the event this information is protected by the Federal Confidentiality of Alcohol and Drug Abuse Patient Records regulations: The Federal rules restrict any use of the information to criminally investigate or prosecute any alcohol or drug abuse patient.[facility] the event this information is protected by the Federal Confidentiality of Alcohol and Drug Abuse Patient Records regulations: The Federal rules restrict any use of the information to criminally investigate or prosecute any alcohol or drug abuse patient.[facility] the event this information is protected by the Federal Confidentiality of Alcohol and Drug Abuse Patient Records regulations: The Federal rules restrict any use of the information to criminally investigate or prosecute any alcohol or drug abuse patient.[facility] the event this information is protected by the Federal Confidentiality of Alcohol and Drug Abuse Patient Records regulations: The Federal rules restrict any use of the information to criminally investigate or prosecute any alcohol or drug abuse patient.[facility] Reason for Visit (unrecogniz ed section and content) Reason Comments Results Reason Comments Rash (LT) eye, groin, fac e, upper torso Reason Comments Erroneous encounter-disregard Reason Comments Hematuria Reason Comments Jury duty - urgent message Reason Comments Appointment Reason Comments URI Pt believes he has a sinus infection. Sunday morning he woke up with N/V/D that resolved and now he has cough, runny nose, and sinus pressure. States that his dad was sick and they both took COVID tests that both came back negative. Care Teams (unrecognized sec tion and content) [employer] Relationship Specialty Start Date End Date Marika Palomo MD [address] [place] [address] PCP - General Family Practice 08/01/12 [employer] Relationship Specialty [place] [address] [place] [address], [place] [address] PCP - General Family Practice 08/01/12 [employer] Relationship Specialty Start [place] [address] [place] [address], [place] [address] PCP - General Family Medicine 08/01/12 [employer] Relationship Specialty Start Date End Date Marika Palomo MD [address] [place] [address], [place] [address] PCP - General Family Medicine 08/01/12 [employer] Relationship Specialty Start Date End Date Marika Palomo MD [address] [place] [address], [place] [address] PCP - General Family Medicine 08/01/12 [employer] Relationship Specialty Start Date End Date Marika aPlomo MD [address] [place] [id number] PCP - General Family Medicine 08/01/12 [employer] Relationship Specialty Start Date End Date Marika Palomo MD [address] [place] [id number] PCP - General Family Medicine 08/01/12 [employer] Relationship Specialty Start Date End Date Marika Palomo MD [address] [place] [id number] PCP - General Family Medicine 05/14/23 FOR RECORDS PERTAINING TO PATIENTS WHO ARE OR HAVE BEEN ENROLLED IN A CHEMICAL DEPENDENCY/SUBSTANCEABUSE PROGRAM, SOME INFORMATION MAY BE OMITTED. This clinical summary was aggregated from multiple sources. Caution should be exercised in using it in the provision of clinical care. This summary normalizes information from multiple sources, and as a consequence, information in this document may materially change the coding, format and clinical context of patient data. In addition, data may be omitted in some cases. CLINICAL DECISIONS SHOULD BE BASED ON THE PRIMARY CLINICAL RECORDS. [facility] [employer] [facility]. provides no warranty or guarantee of the accuracy or completeness of information in this document.
[2023-06-14 13:12] VITALS: BP 142/70
[2023-06-14 13:12] LABS: AST(SGOT) 20 U/L (15-37); Alanine Aminotransfer ALT/SGPT 25 U/L (16-61); Albumin, Serum 3.9 g/dL (3.2-5.0); Alkaline Phosphatase 59 U/L (45-117); Anion Gap 4 (5-15); BUN 14 mg/dL (7-18); BUN/Creat Ratio 14.8 RATIO (10-20); CPK Total, Creatine Kinase 141 U/L (39-308); Calcium,Total 9.9 mg/dL (8.5-10.1); Chloride 108 mmol/L (98-107); Creatinine, Serum 0.95 mg/dL (0.70-1.30); EST Glomerular Filtration Rate 105 mL/min (>60); Est Glom Filt Rate - Afr Amer 127 mL/min (>60); Estimated Creatinine Clearance 136.49 ml/min; Globulin 3.9 g/dL (2.2-4.2); Glucose 99 mg/dL (74-106); Potassium 4.3 mmol/L (3.5-5.1); Protein, Total 7.8 g/dL (6.4-8.2); Sodium Level 140 mmol/L (136-145)
[2023-06-14 13:43] LABS: Absolute Lymphocyte Count 1.72 X10^3/uL (0.83-4.51); Absolute Neutrophil Count 4.4 X10^3/uL (2.0-7.7); Basophil# 0.04 X10^3/uL; Basophil% 0.5 % (0-1); Eosinophil# 0.35 X10^3/uL; Eosinophils% 4.7 % (0-5); Hematocrit 42.7 % (40-54); Lymphocyte # 1.72 X10^3/ul (0.83-4.51); Lymphocyte % 22.9 % (19-41); Mean Corp Hgb Conc 32.8 g/dL (32-36); Mean Corpuscular Hgb 29.4 pg (27.0-32.0); Mean Corpuscular Volume 89.7 fL (80-94); Mean Platelet Vol. 9.6 fl (6.2-12.0); Monocyte# 1.01 X10^3/uL; Monocyte% 13.4 % (0-10); NRBC Flagged by Analyzer 0 % (0-5); Neutrophil # 4.36 X10^3/uL (2.7-7.7); Neutrophil % 58.1 % (47-70); Platelet Count 298 K/mm3 (150-450); RBC Distribution Width CV 12.5 % (11.6-14.6); RBC Distribution Width SD 41.1 fl (35.1-43.9); Red Blood Count 4.76 M/mm3 (4.6-6.2); White Blood Count 7.5 K/mm3 (4.4-11.0)
[2023-06-14] MEDS: Ketorolac 15 MG/ML Vial IV (14:55)
[2023-06-14 14:57] VITALS: BP 166/98; PULSE 65
== END 2023-06-14 15:03 | disposition home or self-care (01) ==
PROVIDERS: Emergency Provider Emergency Medicine; PCP Family Medicine; Visit Provider Emergency Medicine
DX: R31.9 Hematuria, unspecified (principal); Z87.891 Personal history of nicotine dependence; R93.5 Abnormal findings on diagnostic imaging of other abdominal regions, including retroperitoneum; R03.0 Elevated blood-pressure reading, without diagnosis of hypertension; R51.9 Headache, unspecified
CPT/HCPCS: 74176; 80053; 81001; 82550; 85025; 96374; 99283; A4216

== ENCOUNTER → 2024-11-10 | Outpatient (CLI) | payer OTHER, SELFPAY ==
--- NOTE | 2024-11-10 10:05 | RAD_ITS ---
PROCEDURE: HAND MIN 3 VIEWS 11/10/2024 REASON FOR EXAM: LACERATION TECHNIQUE: HAND MIN 3 VIEWS COMPARISON: None FINDINGS: Bones: No fracture. Joints: Normal alignment. Soft tissues: Soft tissues are unremarkable. Other: RAD/Hand Min 3 Views IMPRESSION: NEGATIVE HAND SERIES Reading Location: [place] [address]
== END | disposition home or self-care (01) ==
PROVIDERS: PCP Family Medicine; Referring Provider Physician Assistant; Visit Provider Physician Assistant
DX: S61.411A Laceration without foreign body of right hand, initial encounter (principal)
CPT/HCPCS: 73130